=== PATIENT | female | born 1935 | race Caucasian/White ===

== ENCOUNTER 2016-12-19 11:35 | Inpatient (IN) | payer MEDICARE, OTHER ==
[~2016-12-19] VITALS: Ht 167.6 cm; Wt 50.3 kg
[~2016-12-19 11:35] MED LIST: ALPR1TAB7 PO; AMLO5TAB2 PO; CARB-93 PO; CARV25TA PO; ESCI10TA PO; GABA600T2 PO; HYDR-548 PO; HYDR10TA PO; LOSA100T15 PO; OMEP20CA4 PO; ONDA8TAB6 PO
[2016-12-19] MEDS ORDERED: ONDANSETRON 4 MG/2 ML VIAL IV ONE (11:45)
--- NOTE | 2016-12-19 11:45 | NUR ---
pt is in room #1b. dr Azar evaluated the pt.
[2016-12-19 12:04] LABS: BASOPHILS # (AUTO) 0.1 K/uL (0.0-8.0); BASOPHILS % (AUTO) 0.8 % (0.0-2.0); EOSINOPHILS % (AUTO) 0.7 % (0.0-7.0); HEMATOCRIT 40.6 % (37-47); HEMOGLOBIN 12.8 G/DL (12.0-16.0); LYMPHOCYTES # (AUTO) 1.6 K/UL (0.8-4.8); LYMPHOCYTES % (AUTO) 24.6 % (20.5-51.5); MEAN CORPUSCULAR HEMOGLOBIN 22.5 UUG (27.0-31.0); MEAN CORPUSCULAR HGB CONC 32 g/dL (32.0-37.0); MEAN CORPUSCULAR VOLUME 71.5 FL (81.0-99.0); MONOCYTES # (AUTO) 0.6 K/UL (0.1-1.30); MONOCYTES % (AUTO) 8.9 % (0.0-11.0); PLATELET COUNT (AUTO) 249 K/UL (150-450); RED BLOOD CELL COUNT(AUTO) 5.68 MIL/UL (4.2-5.4); WHITE BLOOD COUNT (AUTO) 6.3 K/UL (4.0-11.2)
[2016-12-19 12:11] LABS: CARBON DIOXIDE 27 mmol/L (21-32); CHLORIDE 95 mmol/L (98-107); POTASSIUM 4.2 mmol/L (3.5-5.1)
[2016-12-19 12:12] LABS: CREATININE 0.9 mg/dL (0.6-1.3); GLUCOSE 110 mg/dL (74-106); UREA NITROGEN, BLOOD 21 mg/dL (7-18)
[2016-12-19 12:18] LABS: ALKALINE PHOSPHATASE 95 U/L (50-136); ASPARTATE AMINOTRANSFERASE 13 U/L (15-37); BILIRUBIN,DIRECT 0.1 mg/dL (0.0-0.2); BILIRUBIN,TOTAL 0.4 mg/dL (0.2-1.0); LIPASE 70 U/L (73-393); TOTAL PROTEIN, SERUM 6.7 g/dL (6.4-8.2)
[2016-12-19] MEDS ORDERED: ONDANSETRON 4 MG/2 ML VIAL ONE (12:19)
[2016-12-19 12:26] LABS: ALANINE AMINOTRANSFERASE < 6 U/L (14-59)
[2016-12-19] MEDS ORDERED: IV NORMAL SALINE 500 ML BAG IV ONE (12:30)
--- NOTE | 2016-12-19 12:52 | NUR ---
report was given to rn clinical research. pt was transfered to telemetry room #230.
[2016-12-19 13:00] VITALS: BP 159/91
[2016-12-19 15:42] VITALS: BP 133/79
[2016-12-19 16:23] VITALS: BP_SYST 114; BP_SYST 146; BP_SYST 94; BP_DIAS 60; BP_DIAS 82; BP_DIAS 94
[2016-12-19] MEDS ORDERED: SENNOSIDES 1 TABLET PO PRN (17:00)
[2016-12-19] MEDS: IV NS 1000 ML 1,000 ML IV PRN (17:44)
[2016-12-19] MEDS: LORAZEPAM 0.5 MG TABLET PO PRN (18:00)
[2016-12-19] MEDS: ACETAMINOPHEN ES 500 MG TABLET PO PRN (18:00)
[2016-12-19] MEDS ORDERED: ALPRAZOLAM 0.5 MG TABLET PO PRN (18:15)
[2016-12-19] MEDS: ONDANSETRON HCL 4 MG TABLET PO PRN (18:15)
--- NOTE | 2016-12-19 18:55 | NUR ---
PT IS FEELING NAUSEOUS, MEDICATED APPROPRIATELY. NO CHANGES NOTED. ALL SAFETY NEEDS ARE MET.
[2016-12-19 20:00] VITALS: BP 159/85
[2016-12-19 20:01] VITALS: BP 127/76
[2016-12-19 20:02] VITALS: BP 86/54
[2016-12-19] MEDS: CARBIDOPA/LEVODOPA 25-100MG TABLET PO SCH (20:58)
[2016-12-19] MEDS: LOSARTAN POTASSIUM 50 MG TABLET PO SCH (20:58)
--- NOTE | 2016-12-19 21:00 | NUR ---
PT'S A/A/O X 3-4,C/O NAUSEA AT THIS TIME,ASSISTED FOR ORAL CARE TO PT.MAINTAINED IVF ORDER.PERFORMED ORTHOSTATIC BP ORDER;EDUCATED TO PT,SHE AGREED AND COOPERATIVE W/ASSISTANCE.FALL PREVENTION TO PT.TELEMETRY'S SR 76/MIN.CONTINUED MONITORING TO PT.
[2016-12-19 23:38] LABS: *BILIRUBIN,URIN NEGATIVE (NEGATIVE); *BLOOD, URINE NEGATIVE (NEGATIVE); *CLARITY,URINE CLEAR (CLEAR); *COLOR,URINE YELLOW (YELLOW); *KETONES,URINE NEGATIVE (NEGATIVE); *PROTEIN,URINE NEGATIVE (NEGATIVE); LEUKOCYTE ESTERASE ,URINE TRACE (NEGATIVE); NITRITE, URINE NEGATIVE (NEGATIVE); UGLUCOSE NEGATIVE (NEGATIVE)
[2016-12-20] VITALS (7 sets, daily range): BP systolic 99–152; BP diastolic 61–85
[2016-12-20 00:01] LABS: BACTERIA,URINE FEW /HPF (NONE SEEN); RBC,URINE 0-3 /HPF (0-3); SQUAMOUS EPITHELIAL CELL,UR FEW /HPF (NONE SEEN); WBC,URINE 0-3 /HPF (0-3)
--- NOTE | 2016-12-20 01:45 | NUR ---
PT'S SLEEPING WELL ON BED;UNLABORED BREATHING NOTED.ON IVF ORDER.KEPT CALL-LIGHT WITHIN REACH.ENDORSED TO MARIA ANTONIA/TYPE COPY EXAMINER TO CONTINUE CARE.
--- NOTE | 2016-12-20 03:45 | NUR ---
nursing rounds made ,pt resting quietly in bed, no complaints of discomforts presented,needs attended to.on tele sinus 82,assisted to br,voidedfreely well.i8v fluids infusing well w/ no problem.
[2016-12-20] MEDS: LORAZEPAM 0.5 MG TABLET PO PRN (04:34)
--- NOTE | 2016-12-20 04:34 | NUR ---
PT WAS MEDICATED W/ ATIVAN FOR ANXIETY.REPOSITIONED IN BED,CALL LITE W/I REACH, KEPT WARM AND COMFORTABLE.
--- NOTE | 2016-12-20 05:33 | NUR ---
SLEPT INTERMITTENTLY, NO VOICED COMPLAINTS.SKIN WARM AND DRY.
[2016-12-20] MEDS: ONDANSETRON HCL 4 MG TABLET PO PRN (06:06)
[2016-12-20] MEDS: GABAPENTIN 300 MG CAPSULE PO SCH ×3 (08:11→16:58)
[2016-12-20] MEDS: CARBIDOPA/LEVODOPA 25-100MG TABLET PO SCH ×4 (08:11→21:08)
[2016-12-20] MEDS: HYDROCORTISONE 10 MG TABLET PO SCH ×2 (08:11→16:58)
[2016-12-20] MEDS: LOSARTAN POTASSIUM 50 MG TABLET PO SCH ×2 (08:12→21:08)
[2016-12-20 09:32] LABS: BASOPHILS % (AUTO) 0.6 % (0.0-2.0); EOSINOPHILS # (AUTO) 0.1 K/uL (0.0-0.7); EOSINOPHILS % (AUTO) 1.1 % (0.0-7.0); HEMOGLOBIN 11.8 G/DL (12.0-16.0); LYMPHOCYTES # (AUTO) 1.6 K/UL (0.8-4.8); LYMPHOCYTES % (AUTO) 34.8 % (20.5-51.5); MEAN CORPUSCULAR HEMOGLOBIN 23.1 UUG (27.0-31.0); MEAN CORPUSCULAR HGB CONC 33 g/dL (32.0-37.0); MONOCYTES # (AUTO) 0.4 K/UL (0.1-1.30); MONOCYTES % (AUTO) 8.4 % (0.0-11.0); NEUTROPHILS # (AUTO) 2.6 K/UL (1.8-8.9); NEUTROPHILS % (AUTO) 55.1 % (38.5-71.5); PLATELET COUNT (AUTO) 230 K/UL (150-450)
[2016-12-20 09:41] LABS: HEMATOCRIT 36.2 % (37-47); WHITE BLOOD COUNT (AUTO) 4.7 K/UL (4.0-11.2)
[2016-12-20 10:03] LABS: THYROID STIMULATING HORMONE 0.482 mIU/mL (0.358-3.740)
[2016-12-20 10:10] LABS: LYMPHOCYTES % (MANUAL) 32 % (20-40); MONOCYTES % (MANUAL) 7 % (2-10); NEUTROPHILS % (MANUAL) 61 % (42-75)
[2016-12-20 10:15] LABS: ALANINE AMINOTRANSFERASE 9 U/L (14-59); ALKALINE PHOSPHATASE 90 U/L (50-136); ASPARTATE AMINOTRANSFERASE 12 U/L (15-37); BILIRUBIN,TOTAL 0.3 mg/dL (0.2-1.0); CARBON DIOXIDE 22 mmol/L (21-32); CHLORIDE 102 mmol/L (98-107); GLUCOSE 135 mg/dL (74-106); POTASSIUM 4.2 mmol/L (3.5-5.1); TOTAL PROTEIN, SERUM 6.3 g/dL (6.4-8.2); UREA NITROGEN, BLOOD 16 mg/dL (7-18)
--- NOTE | 2016-12-20 11:04 | NUR ---
Per dr. red change ativan 0.5mg TID PRN and zofran q6h PRN 8mg to IV route. order noted, carried out
[2016-12-20] MEDS: ONDANSETRON 4 MG/2 ML VIAL IV PRN ×2 (12:19→19:50)
[2016-12-20] MEDS: LORAZEPAM 2 MG/1 ML VIAL IV PRN ×2 (12:28→19:50)
[2016-12-20] MEDS: DICYCLOMINE HCL 10 MG CAPSULE PO SCH ×2 (15:11→17:01)
--- NOTE | 2016-12-20 19:30 | NUR ---
Bedside reporting with NIKOLAS Mckeon. Received patient awake, requesting all her meds right away especially her Ativan and Zofran. Very inpatient, anxious, needy and demanding. Safety measures and fall precaution maintained. Continue care as planned.
--- NOTE | 2016-12-20 19:34 | NUR ---
PT IS LAYING IN BED COMFORTABLY. NO PAIN NOTED. NO S/S OF RESPIRATORY DISTRESS NOTED. IV INTACT/PATENT. ALL SAFETY NEEDS ARE MET.
[2016-12-20] MEDS: IV NS 1000 ML 1,000 ML IV PRN (19:47)
--- NOTE | 2016-12-20 20:10 | NUR ---
Assisted to the BR. Voided well no problem.
[2016-12-20] MEDS: ACETAMINOPHEN ES 500 MG TABLET PO PRN (21:28)
[2016-12-20] MEDS: ZOLPIDEM 5 MG TABLET PO PRN (21:28)
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
--- NOTE | 2016-12-20 23:05 | NUR ---
Sleeping at this time.
[2016-12-21] VITALS (7 sets, daily range): BP systolic 96–171; BP diastolic 54–106
--- NOTE | 2016-12-21 04:05 | NUR ---
Awake, sitting at the edge of bed, confused, calling names, wants someone to stay with her inside the room.
[2016-12-21] MEDS: ACETAMINOPHEN ES 500 MG TABLET PO PRN (04:17)
--- NOTE | 2016-12-21 04:17 | NUR ---
Complaint of headache, tylenol given as needed and ordered. Will monitor.
[2016-12-21] MEDS: LORAZEPAM 2 MG/1 ML VIAL IV PRN ×3 (05:05→23:46)
[2016-12-21] MEDS: LOSARTAN POTASSIUM 50 MG TABLET PO SCH ×2 (05:05→22:06)
--- NOTE | 2016-12-21 05:13 | NUR ---
BP 171/106. Cozaar given ahead of schedule. Has no PRN medication ordered. Charge nurse aware.
[2016-12-21] MEDS: DICYCLOMINE HCL 10 MG CAPSULE PO SCH ×5 (06:02→23:45)
--- NOTE | 2016-12-21 06:40 | NUR ---
Patient very needy, demanding, screamer almost the whole night. Attended all needs but never been pleased. Always getting out of bed. Safety measures and fall precaution maintained. Seen by GI MD today. Continue current plan of care.
[2016-12-21 06:48] LABS: BASOPHILS % (AUTO) 0.2 % (0.0-2.0); EOSINOPHILS % (AUTO) 0.7 % (0.0-7.0); HEMATOCRIT 36.5 % (37-47); HEMOGLOBIN 11.5 G/DL (12.0-16.0); LYMPHOCYTES # (AUTO) 1.4 K/UL (0.8-4.8); LYMPHOCYTES % (AUTO) 30.8 % (20.5-51.5); MEAN CORPUSCULAR HEMOGLOBIN 22.5 UUG (27.0-31.0); MEAN CORPUSCULAR HGB CONC 32 g/dL (32.0-37.0); MEAN CORPUSCULAR VOLUME 71.5 FL (81.0-99.0); MONOCYTES # (AUTO) 0.5 K/UL (0.1-1.30); MONOCYTES % (AUTO) 10.7 % (0.0-11.0); NEUTROPHILS # (AUTO) 2.7 K/UL (1.8-8.9); NEUTROPHILS % (AUTO) 57.6 % (38.5-71.5); PLATELET COUNT (AUTO) 207 K/UL (150-450); WHITE BLOOD COUNT (AUTO) 4.6 K/UL (4.0-11.2)
[2016-12-21 07:16] LABS: ALANINE AMINOTRANSFERASE 8 U/L (14-59); ALKALINE PHOSPHATASE 78 U/L (50-136); ASPARTATE AMINOTRANSFERASE 14 U/L (15-37); BILIRUBIN,TOTAL 0.5 mg/dL (0.2-1.0); CARBON DIOXIDE 24 mmol/L (21-32); CHLORIDE 101 mmol/L (98-107); CREATININE 0.7 mg/dL (0.6-1.3); GLUCOSE 92 mg/dL (74-106); MAGNESIUM 1.7 mg/dL (1.8-2.4); PHOSPHOROUS 2.6 mg/dL (2.5-4.9); UREA NITROGEN, BLOOD 15 mg/dL (7-18)
[2016-12-21] MEDS: ONDANSETRON 4 MG/2 ML VIAL IV PRN (08:29)
[2016-12-21] MEDS: CARBIDOPA/LEVODOPA 25-100MG TABLET PO SCH ×4 (08:30→22:05)
[2016-12-21] MEDS: GABAPENTIN 300 MG CAPSULE PO SCH ×3 (08:30→17:12)
[2016-12-21 08:44] LABS: EOSINOPHILS % (MANUAL) 1 % (0-8); LYMPHOCYTES % (MANUAL) 32 % (20-40); MONOCYTES % (MANUAL) 10 % (2-10); NEUTROPHILS % (MANUAL) 57 % (42-75)
[2016-12-21] MEDS: HYDROCORTISONE 10 MG TABLET PO SCH ×2 (08:46→17:13)
[2016-12-21] MEDS: CARVEDILOL 12.5 MG TABLET PO SCH ×2 (10:15→22:06)
[2016-12-21] MEDS: MAGNESIUM SULFATE/D5W 100 ML IV SCH ×2 (11:00→12:18)
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
[2016-12-21 14:39] LABS: IRON, SERUM 52 ug/dL (50-175)
[2016-12-21 14:54] LABS: FERRITIN 83 ng/mL (8-252)
[2016-12-21 17:08] LABS: *ANTI-SCLERODERMA-70 AB <0.2 AI (0.0-0.9); *SJOGREN'S ANTI-SS-A <0.2 AI (0.0-0.9); *SJOGREN'S ANTI-SS-B <0.2 AI (0.0-0.9); *SMITH ANTIBODIES <0.2 AI (0.0-0.9); ANTI-DNA(DS) AB, QN 1 IU/mL (0-9)
--- NOTE | 2016-12-21 19:25 | NUR ---
NO CHANGES NOTED. PT IS LAYING IN BED COMFORTABLY. PT REPORTS TO BE DIZZY, ADVISED THE PT TO STAY IN HER BED AND CALL IN CASE THE PT WANTS TO GO TO THE BATHROOM. NO S/S OF RESPIRATORY DISTRESS NOTED. NO PAIN NOTED. ALL SAFETY NEEDS ARE MET.
[2016-12-22] VITALS (11 sets, daily range): BP systolic 91–173; BP diastolic 57–99
--- NOTE | 2016-12-22 00:37 | NUR ---
RN NOTES: PATIENT IS COMPLAINING OF GENERALIZED PAIN . CALLED MD HANDY, AND SHE PRESCRIBED NORCO 5-325 MG PRN Q 6HRS.WILL CARRY THE ORDER AND CONTINUE TO MONITOR.
[2016-12-22] MEDS: HYDROCODONE/APAP 5-325MG TABLET PO PRN ×3 (00:45→17:24)
[2016-12-22] MEDS ORDERED: HYDROCODONE/APAP 5-325MG TABLET ONE (00:53)
[2016-12-22] MEDS: DICYCLOMINE HCL 10 MG CAPSULE PO SCH ×4 (05:53→18:15)
[2016-12-22 07:08] LABS: CARBON DIOXIDE 25 mmol/L (21-32); CHLORIDE 99 mmol/L (98-107); CREATININE 0.7 mg/dL (0.6-1.3); GLUCOSE 91 mg/dL (74-106); MAGNESIUM 1.9 mg/dL (1.8-2.4); PHOSPHOROUS 2.7 mg/dL (2.5-4.9); POTASSIUM 4.1 mmol/L (3.5-5.1); UREA NITROGEN, BLOOD 13 mg/dL (7-18)
[2016-12-22 07:23] LABS: BASOPHILS % (AUTO) 0.3 % (0.0-2.0); EOSINOPHILS % (AUTO) 0.8 % (0.0-7.0); HEMATOCRIT 35.9 % (37-47); HEMOGLOBIN 11.7 G/DL (12.0-16.0); LYMPHOCYTES # (AUTO) 1.7 K/UL (0.8-4.8); LYMPHOCYTES % (AUTO) 37.6 % (20.5-51.5); MEAN CORPUSCULAR HEMOGLOBIN 23.1 UUG (27.0-31.0); MEAN CORPUSCULAR HGB CONC 33 g/dL (32.0-37.0); MONOCYTES # (AUTO) 0.4 K/UL (0.1-1.30); MONOCYTES % (AUTO) 8.1 % (0.0-11.0); NEUTROPHILS # (AUTO) 2.3 K/UL (1.8-8.9); NEUTROPHILS % (AUTO) 53.2 % (38.5-71.5); PLATELET COUNT (AUTO) 218 K/UL (150-450); RED BLOOD CELL COUNT(AUTO) 5.05 MIL/UL (4.2-5.4); WHITE BLOOD COUNT (AUTO) 4.4 K/UL (4.0-11.2)
--- NOTE | 2016-12-22 08:00 | NUR ---
AWAKE ORTX2 SOME FORGETFUL BUT ABLE TO FOLLOW SIMPLE DIRECTION NO PAIN OR SOB RESTING WITH CALL LIGHT IN REACH AND BED ALARM ON
[2016-12-22] MEDS: GABAPENTIN 300 MG CAPSULE PO SCH ×3 (08:30→17:23)
[2016-12-22] MEDS: CARBIDOPA/LEVODOPA 25-100MG TABLET PO SCH ×4 (08:30→22:10)
[2016-12-22] MEDS: HYDROCORTISONE 10 MG TABLET PO SCH ×2 (08:30→17:27)
[2016-12-22] MEDS: CARVEDILOL 12.5 MG TABLET PO SCH ×2 (08:33→22:08)
[2016-12-22 08:43] LABS: EOSINOPHILS % (MANUAL) 1 % (0-8); LYMPHOCYTES % (MANUAL) 38 % (20-40); MONOCYTES % (MANUAL) 9 % (2-10); NEUTROPHILS % (MANUAL) 52 % (42-75)
[2016-12-22] MEDS: LOSARTAN POTASSIUM 50 MG TABLET PO SCH ×2 (09:24→22:09)
--- NOTE | 2016-12-22 10:00 | NUR ---
ORTHO STATIC BP CHECKING BUT UNABLE TO DO ON STANDING BECAUSE OF PATIENT VERY WEAK AND C/O OF DIZZINESS CABLE TESTER MD INFORM THIS AM
[2016-12-22] MEDS: VALSARTAN 80 MG TABLET PO SCH ×2 (10:30→10:57)
[2016-12-22] MEDS: ONDANSETRON INJ 8 MG in IV NORMAL SALINE 50 ML IV PRN ×2 (10:56→17:08)
--- NOTE | 2016-12-22 11:30 | NUR ---
DR BURNETTE VISIT PATIENT CONDITION INFORM NEW ORDER IN CHART
[2016-12-22 13:16] LABS: URIC ACID 2.9 mg/dL (2.6-6.0)
[2016-12-22 13:55] LABS: THYROID STIMULATING HORMONE 0.419 mIU/mL (0.358-3.740)
[2016-12-22] MEDS: LORAZEPAM 2 MG/1 ML VIAL IV PRN (16:21)
--- NOTE | 2016-12-22 18:00 | NUR ---
HEMODYNAMIC STATUS STABLE SAFETY MEASURE PROVIDED BED ALARM ON AND CALL JHAVERI IN REACH NO RESPIRATORY DISTRESS
[2016-12-22] MEDS: ZOLPIDEM 5 MG TABLET PO PRN (22:07)
--- NOTE | 2016-12-23 00:10 | NUR ---
MID SHIFT REPORT TAKEN FROM RN CARDIAC CATH. RECEIVED PT RESTING IN BED, IN NO ACUTE DISTRESS. IVF RUNNING, NO INFILTRATION NOTED. SAFETY MEASURES IN PLACE, CALL LIGHT WITHIN REACH, BED ALARM ON. WILL CONTINUE PLAN OF CARE AND MONITOR.
[2016-12-23] MEDS: DICYCLOMINE HCL 10 MG CAPSULE PO SCH ×4 (01:08→16:21)
[2016-12-23 04:33] VITALS: BP 121/90
--- NOTE | 2016-12-23 05:46 | NUR ---
PATIENT SLEPT INTERMITTENTLY, IN NO ACUTE DISTRESS, NO SOB. CALL LIGHT WITHIN REACH, BED ALARM ON. WILL CONTINUE PLAN OF CARE AND MONITOR.
[2016-12-23] MEDS: ONDANSETRON INJ 8 MG in IV NORMAL SALINE 50 ML IV PRN ×2 (08:19→13:25)
[2016-12-23] MEDS: GABAPENTIN 300 MG CAPSULE PO SCH ×3 (08:21→16:21)
[2016-12-23] MEDS: CARBIDOPA/LEVODOPA 25-100MG TABLET PO SCH ×3 (08:21→16:21)
[2016-12-23] MEDS: VALSARTAN 80 MG TABLET PO SCH (08:22)
[2016-12-23] MEDS: LOSARTAN POTASSIUM 50 MG TABLET PO SCH (08:22)
[2016-12-23] MEDS: CARVEDILOL 12.5 MG TABLET PO SCH (08:22)
--- NOTE | 2016-12-23 08:30 | NUR ---
AWAKE COOERATE WELL EAT BREAKFAST SMALL AMT PO FLD REZA WELL C/O OF DIZZINESS PAIN UNDER CONTROL SAFETY MEASURE PROVIDED CALL JHAVERI IN REACH AND BED ALARM ON
[2016-12-23 08:44] LABS: ALANINE AMINOTRANSFERASE 8 U/L (14-59); ALKALINE PHOSPHATASE 73 U/L (50-136); ASPARTATE AMINOTRANSFERASE 14 U/L (15-37); BILIRUBIN,TOTAL 0.3 mg/dL (0.2-1.0); CARBON DIOXIDE 26 mmol/L (21-32); CHLORIDE 99 mmol/L (98-107); CREATININE 0.8 mg/dL (0.6-1.3); GLUCOSE 87 mg/dL (74-106); MAGNESIUM 1.9 mg/dL (1.8-2.4); PHOSPHOROUS 3.5 mg/dL (2.5-4.9); POTASSIUM 4.7 mmol/L (3.5-5.1); TOTAL PROTEIN, SERUM 6.1 g/dL (6.4-8.2); UREA NITROGEN, BLOOD 11 mg/dL (7-18)
[2016-12-23] MEDS: HYDROCORTISONE 10 MG TABLET PO SCH ×2 (09:34→16:21)
[2016-12-23 09:41] LABS: BASOPHILS % (AUTO) 0.3 % (0.0-2.0); EOSINOPHILS % (AUTO) 0.7 % (0.0-7.0); HEMATOCRIT 37.9 % (37-47); HEMOGLOBIN 11.9 G/DL (12.0-16.0); LYMPHOCYTES # (AUTO) 1.5 K/UL (0.8-4.8); LYMPHOCYTES % (AUTO) 24.6 % (20.5-51.5); MEAN CORPUSCULAR HEMOGLOBIN 22.4 UUG (27.0-31.0); MEAN CORPUSCULAR HGB CONC 32 g/dL (32.0-37.0); MEAN CORPUSCULAR VOLUME 71.2 FL (81.0-99.0); MONOCYTES # (AUTO) 0.5 K/UL (0.1-1.30); MONOCYTES % (AUTO) 9.1 % (0.0-11.0); NEUTROPHILS # (AUTO) 3.9 K/UL (1.8-8.9); NEUTROPHILS % (AUTO) 65.3 % (38.5-71.5); PLATELET COUNT (AUTO) 186 K/UL (150-450); RED BLOOD CELL COUNT(AUTO) 5.32 MIL/UL (4.2-5.4); WHITE BLOOD COUNT (AUTO) 5.9 K/UL (4.0-11.2)
--- NOTE | 2016-12-23 10:00 | NUR ---
DR LAM SEE PATIENT AND LAB RESULT AND ORDER IN CHART PATIENT CONDITION INFORM OF C/O BURNNING WHEN URINATE AND STILL VERY WEAK UNABLE TO AMBULATE BECAUSE OF DIZZINESS
[2016-12-23] MEDS ORDERED: DIAZEPAM 5 MG TABLET PO PRN (10:15)
[2016-12-23] MEDS ORDERED: PANT40TA2 PO (10:31)
[2016-12-23] MEDS ORDERED: ACET-2605 PO (10:31)
[2016-12-23] MEDS ORDERED: DICY10CA21 PO (10:31)
[2016-12-23] MEDS ORDERED: SENN-167 PO (10:31)
[2016-12-23] MEDS ORDERED: DIAZ5TAB4 PO (10:31)
[2016-12-23] MEDS ORDERED: FLUDROCORTISONE ACETATE 0.1 MG TABLET PO SCH (10:45)
[2016-12-23 12:46] LABS: *BILIRUBIN,URIN NEGATIVE (NEGATIVE); *BLOOD, URINE NEGATIVE (NEGATIVE); *CLARITY,URINE CLEAR (CLEAR); *COLOR,URINE LIGHT YELLOW (YELLOW); *KETONES,URINE NEGATIVE (NEGATIVE); *PROTEIN,URINE NEGATIVE (NEGATIVE); *UROBILINOGEN,URINE 0.2 E.U./dl (NORMAL); LEUKOCYTE ESTERASE ,URINE NEGATIVE (NEGATIVE); NITRITE, URINE NEGATIVE (NEGATIVE); UGLUCOSE NEGATIVE (NEGATIVE)
--- NOTE | 2016-12-23 13:00 | NUR ---
EAT LUNCH MOD AMT AND C/O OF NAUSEA AND VOMITTING INDIGESTIVE FOOD 50 ML ZOFRAN IVPB GIVEN ORDER
[2016-12-23 13:19] VITALS: BP 129/74
[2016-12-23 13:43] LABS: BACTERIA,URINE FEW /HPF (NONE SEEN); RBC,URINE 0-3 /HPF (0-3); SQUAMOUS EPITHELIAL CELL,UR MODERATE /HPF (NONE SEEN); WBC,URINE 0-3 /HPF (0-3)
--- NOTE | 2016-12-23 14:30 | NUR ---
NAUSEA SUBSIDE FAMILY SON MR HEIN WAS INFORM OF PATIENT DISCHARGE TO REHAB UNIT FIRST FLOOR TODAY ,HE WAS AWARE ABOUT IT
--- NOTE | 2016-12-23 15:00 | NUR ---
REPORT GIVE TO REHAB UNIT NURSE VIA TEL ,PATIENT WAS VERY ANXIETY VALIUM PRN AND TYLENOL PRN FOR PAIN GIVEN
[2016-12-23] MEDS: ACETAMINOPHEN ES 500 MG TABLET PO PRN (15:06)
--- NOTE | 2016-12-23 16:00 | NUR ---
D/C INSTRUCTION AND EDUCATION GIVEN TO PATIENT VERBALIZES UNDERSTAND AND SIGNS PART OF D/C SHEET REFUSED TO SIGNNS ONE OF THREE
[2016-12-23 16:47] VITALS: BP 146/76
--- NOTE | 2016-12-23 17:00 | NUR ---
TAKE DOWN TO REHAB UNIT VIA W/C CONDITION STABLE NO C/O OF DIZZINESS OR N/V OR PAIN AND BELONGING GO WITH PATIENT
[2016-12-24] MEDS ORDERED: FLUD0.1T PO (11:29)
== END 2016-12-23 17:00 | DRG 644 ==
LOC: ER 11:35 → TELE 13:19 → MED 12-20 12:59
PROVIDERS: ADMIT Internal Medicine; ATTEND Internal Medicine
DX: E22.2 Syndrome of inappropriate secretion of antidiuretic hormone (principal); F11.23 Opioid dependence with withdrawal; E27.40 Unspecified adrenocortical insufficiency; E44.1 Mild protein-calorie malnutrition; G90.8 Other disorders of autonomic nervous system; E86.0 Dehydration; G20 Parkinson's disease; K27.9 Peptic ulcer, site unspecified, unspecified as acute or chronic, without hemorrhage or perforation; I10 Essential (primary) hypertension; E83.42 Hypomagnesemia; K21.9 Gastro-esophageal reflux disease without esophagitis; J40 Bronchitis, not specified as acute or chronic; T40.2X5A Adverse effect of other opioids, initial encounter; Y92.009 Unspecified place in unspecified non-institutional (private) residence as the place of occurrence of the external cause; G62.9 Polyneuropathy, unspecified; I71.9 Aortic aneurysm of unspecified site, without rupture
CPT/HCPCS: 36415; 70030-TC; 71010; 76700; 82533; 83550; 83690; 83735; 84100; 84300; 84443; 84480; 84550; 85025; 85651; 85730; 86038; 87086; 93005; 93307; 97110; 97161; 97530; A4663; J2060; J2405; J3475; J3490; J7030; J7040; Q0162

== ENCOUNTER 2016-12-23 14:14 | Inpatient (IN) | payer MEDICARE, OTHER ==
[~2016-12-23] VITALS: Ht 152.4 cm; Wt 50.3 kg
[~2016-12-23 14:14] MED LIST changes: +ACET-2605 PO; -AMLO5TAB2 PO; -CARV25TA PO; +DIAZ5TAB4 PO; +DICY10CA21 PO; -ESCI10TA PO; -HYDR-548 PO; -OMEP20CA4 PO; +PANT40TA2 PO; +SENN-167 PO
[2016-12-23 14:30] VITALS: BP 139/81
[2016-12-23] MEDS ORDERED: Z GUARD REMEDY PASTE 57 GM TUBE TOP PRN (17:45)
--- NOTE | 2016-12-23 19:30 | NUR ---
Received patient awake on her bed, no s/s of distress. Requested for snacks. Call light within reach. Will continue to monitor.
[2016-12-23] MEDS: HYDROCODONE/APAP 5-325MG TABLET PO PRN (20:35)
[2016-12-23 22:09] VITALS: BP 138/85
[2016-12-24] MEDS ORDERED: ACETAMINOPHEN 325 MG TABLET PO PRN
[2016-12-24] MEDS: DIAZEPAM 5 MG TABLET PO PRN ×2 (00:07→16:04)
[2016-12-24] MEDS ORDERED: DIAZEPAM 5 MG TABLET ONE (00:13)
[2016-12-24] MEDS ORDERED: ACETAMINOPHEN ES 500 MG TABLET ONE (00:13)
[2016-12-24] MEDS ORDERED: HYDROCODONE/APAP 5-325MG TABLET PO STA (01:37)
--- NOTE | 2016-12-24 01:40 | NUR ---
Patient verbalizes pain despite being given [place] 5-325 at 2030 and Tylenol 500mg at 0000 as ordered. Comfort measures likewise provided. Diazepam given as ordered to help with anxiety. Dr. Johnson made aware of patient's complaints and ordered [place] 5-325 once STAT. Carried out at 0130. Will continue to monitor.
--- NOTE | 2016-12-24 07:09 | NUR ---
Patient resting on her bed. Respirations even and unlabored. Complains of generalized pain, verbalized little relief after interventions. Tried to alleviate anxiety by talking, comforting and close monitoring. Pain complaints and VS attempted to be communicated to MD maintenance and operations supervisor several times this morning, still awaiting call back. Frequent checks done. Call light kept within reach. Needs attended. Due meds given. Kept comfortable. Endorsed accordingly.
[2016-12-24 07:15] LABS: PHOSPHOROUS 3.6 mg/dL (2.5-4.9)
[2016-12-24 07:57] LABS: BASOPHILS # (AUTO) 0.1 K/uL (0.0-8.0); EOSINOPHILS % (AUTO) 0.8 % (0.0-7.0); HEMATOCRIT 37.9 % (37-47); HEMOGLOBIN 12.5 G/DL (12.0-16.0); LYMPHOCYTES # (AUTO) 1.9 K/UL (0.8-4.8); LYMPHOCYTES % (AUTO) 34.4 % (20.5-51.5); MEAN CORPUSCULAR HEMOGLOBIN 23.5 UUG (27.0-31.0); MEAN CORPUSCULAR HGB CONC 33 g/dL (32.0-37.0); MEAN CORPUSCULAR VOLUME 71.3 FL (81.0-99.0); MONOCYTES # (AUTO) 0.5 K/UL (0.1-1.30); MONOCYTES % (AUTO) 9.6 % (0.0-11.0); NEUTROPHILS % (AUTO) 54.2 % (38.5-71.5); PLATELET COUNT (AUTO) 224 K/UL (150-450); RED BLOOD CELL COUNT(AUTO) 5.31 MIL/UL (4.2-5.4); WHITE BLOOD COUNT (AUTO) 5.5 K/UL (4.0-11.2)
[2016-12-24 08:00] VITALS: BP 203/108
[2016-12-24 08:35] LABS: CARBON DIOXIDE 27 mmol/L (21-32); CHLORIDE 100 mmol/L (98-107); GLUCOSE 84 mg/dL (74-106); POTASSIUM 3.8 mmol/L (3.5-5.1)
[2016-12-24 08:36] LABS: CREATININE 0.9 mg/dL (0.6-1.3); MAGNESIUM 1.9 mg/dL (1.8-2.4); TRIGLYCERIDES 188 MG/DL (30-150); UREA NITROGEN, BLOOD 11 mg/dL (7-18)
[2016-12-24 08:37] LABS: CHOLESTEROL 137 mg/dL (<200); HDL CHOLESTEROL 65 mg/dL (40-60)
[2016-12-24] MEDS: hydrALAZINE HCL 10 MG TABLET PO PRN (09:14)
[2016-12-24] MEDS: HYDROCODONE/APAP 5-325MG TABLET PO PRN ×2 (09:16→21:29)
[2016-12-24] MEDS: ACETAMINOPHEN ES 500 MG TABLET PO PRN (09:16)
[2016-12-24] MEDS ORDERED: ALPRAZOLAM 0.25 MG TABLET PO PRN (10:15)
[2016-12-24] MEDS ORDERED: DIAZEPAM 5 MG TABLET PO PRN ×2 (10:15→13:00)
[2016-12-24] MEDS ORDERED: FLUD0.1T PO (11:29)
[2016-12-24 11:49] VITALS: BP 122/79
--- NOTE | 2016-12-24 12:15 | NUR ---
Tenter Feeder SW met with patient at [facility] to assess pt needs and provide support. The patient's son Sánchez Farias was sitting at the patient's bedside. The patient is an 81 year old female admitted for Parkinson's disease, Neuropathy, and Chronic neuropathic pain. The patient was laying in her bed during the assessment. She was calm, pleasant, and cooperative during the interview. The patient's mood was somewhat anxious and superficial. The patient stated that she is experiencing some pain and her hands have been shaking since she has not taken her parkinsons medicaiton. Per pt, she lives with her son at [[id number] ]. Spoke with both patient and son who stated that they would like for the patient to return home upon discharge. The patient acknowledged her condition and the need for intervention. The patient stated that she has strong social support from her son. Social History: The patient stated that she is of [place] descent and was born in [place] and raised in [place] by both of her parents. She also lived in [place] for 10 years. She was once for 4 years and in 1979 and then moved to the with her son. The patient has lived in the same apartment for 7-10 years. 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 Her son is her primary caregiver and is her main support. SW engaged in active listening and provided supportive counseling during the interview to address patient's depressive symptoms related to her decline in functioning. SW will continue to address issues of loss related to recent hospitalization. SW will encourage compliance with rehab goals. SW will be available as needed.
[2016-12-24] MEDS: DICYCLOMINE HCL 10 MG CAPSULE PO SCH ×2 (12:30→18:06)
[2016-12-24] MEDS: GABAPENTIN 300 MG CAPSULE PO SCH ×2 (12:30→16:04)
[2016-12-24] MEDS: CARBIDOPA/LEVODOPA 25-100MG TABLET PO SCH ×3 (12:30→21:13)
[2016-12-24] MEDS: LOSARTAN POTASSIUM 50 MG TABLET PO SCH (12:39)
[2016-12-24] MEDS: FLUDROCORTISONE ACETATE 0.1 MG TABLET PO SCH (12:40)
[2016-12-24] MEDS ORDERED: CARBIDOPA/LEVODOPA 25-100MG TABLET PO SCH (13:00)
[2016-12-24] MEDS ORDERED: ACETAMINOPHEN ES 500 MG TABLET PO PRN (13:00)
[2016-12-24] MEDS ORDERED: SENNOSIDES 1 TABLET PO PRN (13:00)
[2016-12-24 14:20] LABS: LYMPHOCYTES % (MANUAL) 41 % (20-40); NEUTROPHILS % (MANUAL) 49 % (42-75)
[2016-12-24 14:21] LABS: MONOCYTES % (MANUAL) 10 % (2-10)
[2016-12-24] MEDS: SENNOSIDES 1 TABLET PO PRN (15:11)
[2016-12-24] MEDS: HYDROCORTISONE 10 MG TABLET PO SCH (16:04)
[2016-12-24] MEDS ORDERED: HYDROCORTISONE 10 MG TABLET PO SCH (17:00)
[2016-12-24] MEDS ORDERED: DICYCLOMINE HCL 10 MG CAPSULE PO SCH (18:00)
--- NOTE | 2016-12-24 19:30 | NUR ---
Received report from NIKOLAS Rutledge. Pt currently asleep, breathing normally, observed a good color.
[2016-12-24] MEDS: ATORVASTATIN 10 MG TABLET PO SCH (21:13)
[2016-12-24] MEDS: ONDANSETRON HCL 4 MG TABLET PO PRN (21:27)
[2016-12-24 21:33] VITALS: BP_SYST 133; BP_SYST 178; BP_DIAS 106; BP_DIAS 78
--- NOTE | 2016-12-24 22:00 | NUR ---
Night meds given, requested for [place] and zofran for bilateral leg pain.VS has been stable. Pleasant AOX3, transfers to bedside commode by herself. Observed tremors to bilateral hands/arms.
--- NOTE | 2016-12-25 | NUR ---
Pt is awake and administered Bentyl (routine meds), requested blanket, made pt comfortable.
[2016-12-25] MEDS: DICYCLOMINE HCL 10 MG CAPSULE PO SCH ×5 (01:27→23:26)
--- NOTE | 2016-12-25 05:00 | NUR ---
Remained asleep, breathing normally, continue monitor.
[2016-12-25] MEDS: PANTOPRAZOLE SODIUM 40 MG TABLET.DR PO SCH (05:48)
[2016-12-25] MEDS: HYDROCODONE/APAP 5-325MG TABLET PO PRN ×2 (06:18→17:25)
[2016-12-25] MEDS: ONDANSETRON HCL 4 MG TABLET PO PRN (06:18)
--- NOTE | 2016-12-25 07:15 | NUR ---
Report to NIKOLAS Rutledge
[2016-12-25 08:00] VITALS: BP 191/114
[2016-12-25] MEDS ORDERED: PANTOPRAZOLE SODIUM 40 MG TABLET.DR PO SCH (09:00)
[2016-12-25] MEDS: LOSARTAN POTASSIUM 50 MG TABLET PO SCH (09:06)
[2016-12-25] MEDS: GABAPENTIN 300 MG CAPSULE PO SCH ×3 (09:06→17:19)
[2016-12-25] MEDS: CARBIDOPA/LEVODOPA 25-100MG TABLET PO SCH ×4 (09:07→20:14)
[2016-12-25] MEDS: FLUDROCORTISONE ACETATE 0.1 MG TABLET PO SCH (09:07)
[2016-12-25] MEDS: HYDROCORTISONE 10 MG TABLET PO SCH ×2 (09:09→17:19)
--- NOTE | 2016-12-25 15:05 | NUR ---
IDT MEETING 12/25/16
[2016-12-25] MEDS: ACETAMINOPHEN ES 500 MG TABLET PO PRN (15:10)
[2016-12-25] MEDS: SENNOSIDES 1 TABLET PO PRN (15:14)
[2016-12-25] MEDS: DIAZEPAM 5 MG TABLET PO PRN (15:38)
--- NOTE | 2016-12-25 19:05 | NUR ---
pt still complains of pain and constipation. pt given valium and senna. pt also given norco for pain. pt still complains of pain .
[2016-12-25 20:06] VITALS: BP 108/70
[2016-12-25] MEDS: ATORVASTATIN 10 MG TABLET PO SCH (20:14)
[2016-12-26] MEDS: HYDROCODONE/APAP 5-325MG TABLET PO PRN ×2 (03:49→11:50)
[2016-12-26] MEDS: DICYCLOMINE HCL 10 MG CAPSULE PO SCH ×3 (06:28→17:52)
[2016-12-26] MEDS: PANTOPRAZOLE SODIUM 40 MG TABLET.DR PO SCH (06:28)
[2016-12-26] MEDS: ONDANSETRON HCL 4 MG TABLET PO PRN ×2 (06:31→13:14)
--- NOTE | 2016-12-26 06:42 | NUR ---
Patient alert and oriented and verbally able to let needs known. Slept well throughout the night, c/o pain once and medication was given with relief. No signs of distress noted, maintained clean and dry, call light within reach. Addendum: 12/26/16 at 0644 by CAM LAN RN Patient c/o feeling some nausea this morning and zofran was administered, will continue to monitor. No emesis present
[2016-12-26] MEDS: hydrALAZINE HCL 10 MG TABLET PO PRN (06:53)
--- NOTE | 2016-12-26 06:55 | NUR ---
Patient stated she felt that her b/p was high. B/p was checked with a reading of 190/110. Apresoline PRN was given, will recheck the b/p again in about 30 mins
--- NOTE | 2016-12-26 07:00 | NUR ---
Received pt in bed, a/o x4, pt c/o of stomach pain and constipation states she has not moved bowels x4 days, active bowel sounds active all 4 quadrants. Call light within reach. Bed low/locked position.
[2016-12-26 07:56] VITALS: BP 201/117
--- NOTE | 2016-12-26 08:30 | NUR ---
B/P rechecked reading 125/76 HR 73.
[2016-12-26] MEDS: CARBIDOPA/LEVODOPA 25-100MG TABLET PO SCH ×4 (08:47→20:43)
[2016-12-26] MEDS: LOSARTAN POTASSIUM 50 MG TABLET PO SCH (08:47)
[2016-12-26] MEDS: DULOXETINE 30 MG CAPSULE.DR PO SCH (08:48)
[2016-12-26] MEDS: SENNOSIDES 1 TABLET PO PRN (08:48)
[2016-12-26] MEDS: FLUDROCORTISONE ACETATE 0.1 MG TABLET PO SCH (08:48)
[2016-12-26] MEDS: GABAPENTIN 300 MG CAPSULE PO SCH ×3 (08:48→16:30)
[2016-12-26] MEDS: HYDROCORTISONE 10 MG TABLET PO SCH ×2 (08:59→16:31)
[2016-12-26 09:46] VITALS: BP 138/84
--- NOTE | 2016-12-26 13:14 | NUR ---
pt c/o of nausea, noted with x1 episode of vomiting. zofran 8mg po given as requested. will con't to monitor.
[2016-12-26] MEDS: MIRALAX 17 GM POWD.PACK PO PRN (17:55)
--- NOTE | 2016-12-26 18:16 | NUR ---
END of shift pt in bed, a/o x3, no distress noted. Pt was seen by dr. Sandoval and he spoke to the pt regarding the plan of care, he spoke to pt on d/c of norco medication, pt in agreement. Miralax Po was given for c/o of constipation. will endorse to oncoming nurse to monitor effectiveness.
[2016-12-26 20:00] VITALS: BP 109/67
--- NOTE | 2016-12-26 20:00 | NUR ---
Patient in room A/ox4 with no distress noted. Denies SOB,N/V. asking for ativan for anxiety. provided comfort and safety measures
[2016-12-26] MEDS: LORAZEPAM 1 MG TABLET PO PRN (20:43)
[2016-12-26] MEDS: ACETAMINOPHEN ES 500 MG TABLET PO PRN (20:43)
[2016-12-26] MEDS: ATORVASTATIN 10 MG TABLET PO SCH (20:43)
--- NOTE | 2016-12-26 23:00 | NUR ---
Pateint sleeping with no distress noted
[2016-12-27] MEDS: PANTOPRAZOLE SODIUM 40 MG TABLET.DR PO SCH (05:39)
[2016-12-27] MEDS: DICYCLOMINE HCL 10 MG CAPSULE PO SCH ×5 (05:39→23:16)
[2016-12-27] MEDS: ACETAMINOPHEN ES 500 MG TABLET PO PRN ×3 (05:39→23:16)
[2016-12-27 06:20] LABS: BASOPHILS % (AUTO) 0.2 % (0.0-2.0); EOSINOPHILS % (AUTO) 0.8 % (0.0-7.0); HEMATOCRIT 37.3 % (37-47); HEMOGLOBIN 11.9 G/DL (12.0-16.0); LYMPHOCYTES # (AUTO) 1.9 K/UL (0.8-4.8); LYMPHOCYTES % (AUTO) 31.9 % (20.5-51.5); MEAN CORPUSCULAR HGB CONC 32 g/dL (32.0-37.0); MEAN CORPUSCULAR VOLUME 71.9 FL (81.0-99.0); MONOCYTES # (AUTO) 0.4 K/UL (0.1-1.30); MONOCYTES % (AUTO) 7.6 % (0.0-11.0); NEUTROPHILS # (AUTO) 3.6 K/UL (1.8-8.9); NEUTROPHILS % (AUTO) 59.5 % (38.5-71.5); PLATELET COUNT (AUTO) 217 K/UL (150-450); RED BLOOD CELL COUNT(AUTO) 5.18 MIL/UL (4.2-5.4); WHITE BLOOD COUNT (AUTO) 5.9 K/UL (4.0-11.2)
[2016-12-27 06:44] LABS: ALANINE AMINOTRANSFERASE 14 U/L (14-59); ALKALINE PHOSPHATASE 71 U/L (50-136); ASPARTATE AMINOTRANSFERASE 20 U/L (15-37); BILIRUBIN,TOTAL 0.3 mg/dL (0.2-1.0); CARBON DIOXIDE 29 mmol/L (21-32); CHLORIDE 95 mmol/L (98-107); CREATININE 0.8 mg/dL (0.6-1.3); GLUCOSE 84 mg/dL (74-106); PHOSPHOROUS 4.1 mg/dL (2.5-4.9); POTASSIUM 4.6 mmol/L (3.5-5.1); TOTAL PROTEIN, SERUM 6.1 g/dL (6.4-8.2); UREA NITROGEN, BLOOD 17 mg/dL (7-18)
[2016-12-27] MEDS: hydrALAZINE HCL 10 MG TABLET PO PRN (07:37)
[2016-12-27 08:00] VITALS: BP 172/89
--- NOTE | 2016-12-27 08:00 | NUR ---
Received patient awake, sitting up on the bed, alert, verbally responsive, not in any form of acute distress. She denies any pain or discomfort at this time. Environmental safety checks done. Assisted to her needs. Call light placed within reach.
[2016-12-27] MEDS: HYDROCORTISONE 10 MG TABLET PO SCH ×2 (08:32→17:04)
[2016-12-27] MEDS: CARBIDOPA/LEVODOPA 25-100MG TABLET PO SCH ×4 (08:34→20:36)
[2016-12-27] MEDS: GABAPENTIN 300 MG CAPSULE PO SCH ×3 (08:35→17:05)
[2016-12-27] MEDS: DULOXETINE 30 MG CAPSULE.DR PO SCH (08:35)
[2016-12-27] MEDS: FLUDROCORTISONE ACETATE 0.1 MG TABLET PO SCH (08:36)
[2016-12-27] MEDS: MIRALAX 17 GM POWD.PACK PO PRN (09:07)
[2016-12-27] MEDS: LOSARTAN POTASSIUM 50 MG TABLET PO SCH ×2 (09:56→20:35)
[2016-12-27] MEDS: ONDANSETRON HCL 4 MG TABLET PO PRN (10:25)
[2016-12-27] MEDS: LORAZEPAM 1 MG TABLET PO PRN ×3 (13:25→22:07)
--- NOTE | 2016-12-27 20:04 | NUR ---
Patient seen by Dr. Johnson with order to change Tylenol ES 500mg PO Q 6hrs PRN and give Excedrine ES 1 tab PO BID PRN for headache. Order carried out. Patient made aware.
[2016-12-27] MEDS: ASPIRIN/ACETAMINOPHEN/CAFFEINE TABLET PO PRN (20:33)
[2016-12-27] MEDS: ATORVASTATIN 10 MG TABLET PO SCH (20:36)
[2016-12-27 21:20] VITALS: BP 156/82
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
[2016-12-27] MEDS: ZOLPIDEM 5 MG TABLET PO PRN (23:40)
--- NOTE | 2016-12-27 23:40 | NUR ---
Dr. Maynard gave order for Marjan, carried out. All meds routine and PRNs have been given to pt. Please see EMar for administration times. Pt constantly re-oriented to reality. Close observation maintained at all times.
[2016-12-27] MEDS ORDERED: ZOLPIDEM 5 MG TABLET ONE (23:51)
--- NOTE | 2016-12-28 03:00 | NUR ---
Pt finally sleeping. In no apparent acute distress. Call ortiz on hand at all times.
[2016-12-28] MEDS: DICYCLOMINE HCL 10 MG CAPSULE PO SCH ×3 (06:00→17:16)
--- NOTE | 2016-12-28 06:30 | NUR ---
Pleasant this AM. States had a good sleep. However, pt refused AM due meds despite explanations. States to call RN when ready to take meds. Will endorse to Day RN.
[2016-12-28] MEDS: PANTOPRAZOLE SODIUM 40 MG TABLET.DR PO SCH (06:31)
[2016-12-28 08:00] VITALS: BP 159/90
[2016-12-28] MEDS: ACETAMINOPHEN ES 500 MG TABLET PO PRN (08:16)
[2016-12-28] MEDS: DULOXETINE 30 MG CAPSULE.DR PO SCH (08:16)
[2016-12-28] MEDS: CARBIDOPA/LEVODOPA 25-100MG TABLET PO SCH ×4 (08:16→20:02)
[2016-12-28] MEDS: GABAPENTIN 300 MG CAPSULE PO SCH ×3 (08:16→17:16)
[2016-12-28] MEDS: LOSARTAN POTASSIUM 50 MG TABLET PO SCH ×2 (08:22→20:01)
[2016-12-28] MEDS: HYDROCORTISONE 10 MG TABLET PO SCH ×2 (08:24→17:17)
[2016-12-28] MEDS: hydrALAZINE HCL 10 MG TABLET PO PRN (08:28)
[2016-12-28] MEDS: FLUDROCORTISONE ACETATE 0.1 MG TABLET PO SCH (08:29)
[2016-12-28] MEDS: LORAZEPAM 1 MG TABLET PO PRN ×2 (08:35→19:00)
[2016-12-28] MEDS: ONDANSETRON HCL 4 MG TABLET PO PRN ×2 (09:33→19:00)
[2016-12-28] MEDS ORDERED: CLONIDINE HCL 0.1 MG TABLET PO PRN (12:30)
--- NOTE | 2016-12-28 13:29 | NUR ---
Spoke with Dr. Maynard regarding pt's high blood pressure this am and full report given. New orders received.
[2016-12-28] MEDS: ASPIRIN/ACETAMINOPHEN/CAFFEINE TABLET PO PRN (17:16)
--- NOTE | 2016-12-28 19:30 | NUR ---
PT ALERT YET FORGETFUL LAYING IN BED. ASKING FOR ATIVAN, DAYSHIFT NURSE GAVE ATIVAN AT 1900. EXPLAINED TO PT SHE HAD ALREADY RECEIVED THE MEDICATION. PT UNDERSTOOD. NO DISTRESS NOTED. CLEAN AND DRY. BED ALARM ON. SAFETY MAINTAINED. CALL LIGHT WITHIN REACH. WILL CONTINUE TO MONITOR.
[2016-12-28] MEDS: ATORVASTATIN 10 MG TABLET PO SCH (20:01)
[2016-12-28] MEDS: CLONIDINE HCL 0.1 MG TABLET PO SCH (20:02)
[2016-12-28 20:52] VITALS: BP 172/97
--- NOTE | 2016-12-28 21:40 | NUR ---
PT FOUND ON FLOOR IN SITTING POSITION. PT ALERT YET FORGETFUL. PT STATED " I DID NOT HIT MY HEAD AND I HAVE NO PAIN". VS WNL 152/76 HR 75. O2 SAT WNL. HELPED BACK INTO BED BY HELP OF NURSING STAFF. EXPLAINED TO PT THE NEED TO USE CALL LIGHT BEFORE GETTING UP TO USE COMMODE. PT STATED SHE UNDERSTOOD. NO DISTRESS NOTED. SKIN CHECK COMPLETED. CALLED DR AYDIN NAVARRETE, NEW ORDERS GIVEN AND PLACED. CALL LIGHT WITHIN REACH. WILL CONTINUE TO MONITOR. BED ALARM ON.
--- NOTE | 2016-12-28 23:00 | NUR ---
CALLED DR PERRIN INSTEAD OF DR ARVIND ZARAGOZA. CALLED DR ZARAGOZA AND EXPLAINED THE EVENT OF THE FALL, ORDERS OF CT HEAD ALREADY COMPLETED AND EXPLAINED NEUROLOGICAL CHECKS Q6 FOR [address]. [address] RESULTS OF CT OF THE HEAD NOT RESULTED YET. PLACED CALL TO DR PERRIN, TO EXPLAIN DR ZARAGOZA PT, AWAITING CALL BACK. TRIED TO REACH NEXT OF KIN, NO NUMBER LISTED FOR FAMILY MEMBER.
[2016-12-29] MEDS: DICYCLOMINE HCL 10 MG CAPSULE PO SCH ×4 (00:20→17:25)
[2016-12-29] MEDS: PANTOPRAZOLE SODIUM 40 MG TABLET.DR PO SCH (06:07)
--- NOTE | 2016-12-29 06:39 | NUR ---
PT ALERT IN BED. TRIED GETTING OUT OF BED AGAIN THIS MORNING WITHOUT ASSISTANCE, VERY FORGETFUL, EDUCATED HER AGAIN TO CALL BEFORE GETTING OUT OF BED. COMPLIANT WITH MEDICATIONS. NEUROLOGICAL CHECKS COMPLETE FOR THE SHIFT. WILL ENDORSE TO CONTINUE Q 6 HOURS FOR 24 HOURS. CALLED RADIOLOGY STILL AWAITING RESULTS OF HEAD CT. ASKED PT FOR SON'S PHONE NUMBER AND CANNOT REMEMBER. WILL ENDORSE TO DAYSHIFT CONCERNING FALL IF SON CALLS TO LET HIM KNOW. CLEAN AND DRY. SAFETY MAINTAINED. CALL LIGHT WITHIN REACH. BED ALARM ON.
--- NOTE | 2016-12-29 07:09 | NUR ---
SKYLER FROM RADIOLOGY CALLED AND WAS GOING TO SPEAK WITH THE RADIOLOGIST CONCERNING HEAD CT RESULTS AND TO LET THE NEXT SHIFT KNOW.
[2016-12-29 08:00] VITALS: BP 175/106
[2016-12-29] MEDS: DULOXETINE 30 MG CAPSULE.DR PO SCH (08:07)
[2016-12-29] MEDS: CARBIDOPA/LEVODOPA 25-100MG TABLET PO SCH ×4 (08:08→21:25)
[2016-12-29] MEDS: GABAPENTIN 300 MG CAPSULE PO SCH ×3 (08:08→17:25)
[2016-12-29] MEDS: FLUDROCORTISONE ACETATE 0.1 MG TABLET PO SCH (08:09)
[2016-12-29] MEDS: LOSARTAN POTASSIUM 50 MG TABLET PO SCH ×2 (08:10→21:24)
[2016-12-29] MEDS: CLONIDINE HCL 0.1 MG TABLET PO SCH (08:10)
[2016-12-29] MEDS: HYDROCORTISONE 10 MG TABLET PO SCH ×2 (08:11→17:26)
[2016-12-29] MEDS: ASPIRIN/ACETAMINOPHEN/CAFFEINE TABLET PO PRN (13:45)
[2016-12-29] MEDS: ONDANSETRON HCL 4 MG TABLET PO PRN (13:48)
[2016-12-29 20:17] VITALS: BP 161/93
--- NOTE | 2016-12-29 20:30 | NUR ---
Patient sitting up in bed. Son, Courtney Farias at bedside. Notified son for patient's fall incident last night. Son was very sincere and verbalized to the patient to always call for help when needed and not to get up on her own. I also reiterated to her to make sure she calls for help when assistance is needed. Notified son that we did not have any contact information for family, so we were unable to notify any one last night. Son gave me contact number and placed in patient's chart. Call light is at bedside. Both son and patient verbalizes understanding. Bed alarm is on. Call light within reach. All needs attended to promptly. Will continue to monitor.
[2016-12-29] MEDS ORDERED: CLONIDINE HCL 0.1 MG TABLET PO SCH (21:00)
[2016-12-29] MEDS: ATORVASTATIN 10 MG TABLET PO SCH (21:24)
[2016-12-29] MEDS ORDERED: CLONIDINE HCL 0.2 MG TABLET ONE (21:39)
[2016-12-29] MEDS ORDERED: CLONIDINE HCL 0.1 MG TABLET ONE (21:43)
[2016-12-30] MEDS: ZOLPIDEM 5 MG TABLET PO PRN (01:34)
[2016-12-30] MEDS: CARBIDOPA/LEVODOPA 25-100MG TABLET PO SCH ×5 (01:50→20:04)
--- NOTE | 2016-12-30 02:30 | NUR ---
Patient is awake. Patient trying to get out of bed to use bedside commode. Bed alarm went off. Verbalized to patient to use call light when she wants to get up. Reminded patient of risks and benefits. Nursing staff assisted patient to bedside commode. All needs attended to promptly. Call light within reach. Will continue to monitor. Reminded patient to call for help when need.
[2016-12-30] MEDS: ASPIRIN/ACETAMINOPHEN/CAFFEINE TABLET PO PRN (02:45)
[2016-12-30] MEDS: LORAZEPAM 1 MG TABLET PO PRN ×3 (02:45→21:34)
[2016-12-30] MEDS: ACETAMINOPHEN ES 500 MG TABLET PO PRN ×3 (02:46→20:02)
--- NOTE | 2016-12-30 05:33 | NUR ---
1929: Received pt AAOX3, BP elevated 161/93 otherwise VSS and cardiac meds administered per eMAR, LCTAB, denies SOB, BS present [id number], abd soft,voiding well, amb to [facility] with standby assist. High Fall Risk plan implemented; bed in low position; call light within reach; bed alarm on. pt instructed to call for assistance before getting oob; pt verbalized understanding but unable to successfully return demonstration. will continue to reinforce education and round frequently. 0: pt asleep laying in bed; appears comfortable; family member at bedside earlier and son encouraged patient to use call light prior to getting oob. return demonstration successfull. 0130 frequent bed alarming and pt more forgetful. appears anxious. ambien administered for sleep and tylenol administered for pain, generalized and burning 01/20 @ 0140. 0200 bed alarming; pt states she wants norco and something for sleep. medication education provided and reinforced. pt states she wants ativan and xanax and excedrin. more patient education provided and reinforced. pt verbalized understanding. Addendum: 12/30/16 at 0556 by BLUE WARNER RN 0245 pt states she wants more medication. ativan and excedrin administered per order with minimal relief. intermittent sleep [id number] so far this shift. with repeated requests for opiods, anxiolytics, and tylenol/excedrin within the alloted frequency time frame. calming and supportive measures provided by staff. with moderate relief. 0555 pt asleep at this time; frequent rounds; bed in low position and alarm on. pathway to [facility] free from clutter; call light with in reach; will continue with poc
[2016-12-30 06:04] LABS: BASOPHILS % (AUTO) 0.2 % (0.0-2.0); EOSINOPHILS % (AUTO) 0.6 % (0.0-7.0); HEMOGLOBIN 11.2 G/DL (12.0-16.0); LYMPHOCYTES # (AUTO) 1.2 K/UL (0.8-4.8); LYMPHOCYTES % (AUTO) 24.5 % (20.5-51.5); MEAN CORPUSCULAR HEMOGLOBIN 22.4 UUG (27.0-31.0); MEAN CORPUSCULAR HGB CONC 31 g/dL (32.0-37.0); MEAN CORPUSCULAR VOLUME 71.8 FL (81.0-99.0); MONOCYTES # (AUTO) 0.5 K/UL (0.1-1.30); MONOCYTES % (AUTO) 9.5 % (0.0-11.0); NEUTROPHILS # (AUTO) 3.1 K/UL (1.8-8.9); NEUTROPHILS % (AUTO) 65.2 % (38.5-71.5); PLATELET COUNT (AUTO) 210 K/UL (150-450); RED BLOOD CELL COUNT(AUTO) 5.01 MIL/UL (4.2-5.4); WHITE BLOOD COUNT (AUTO) 4.8 K/UL (4.0-11.2)
[2016-12-30] MEDS: PANTOPRAZOLE SODIUM 40 MG TABLET.DR PO SCH (06:11)
[2016-12-30 06:21] LABS: ALANINE AMINOTRANSFERASE 8 U/L (14-59); ALKALINE PHOSPHATASE 62 U/L (50-136); ASPARTATE AMINOTRANSFERASE 14 U/L (15-37); BILIRUBIN,TOTAL 0.3 mg/dL (0.2-1.0); CARBON DIOXIDE 27 mmol/L (21-32); CREATININE 0.8 mg/dL (0.6-1.3); GLUCOSE 112 mg/dL (74-106); MAGNESIUM 1.9 mg/dL (1.8-2.4); PHOSPHOROUS 3.7 mg/dL (2.5-4.9); TOTAL PROTEIN, SERUM 5.8 g/dL (6.4-8.2); UREA NITROGEN, BLOOD 10 mg/dL (7-18)
[2016-12-30 06:27] LABS: CHLORIDE 86 mmol/L (98-107); POTASSIUM 3.5 mmol/L (3.5-5.1)
[2016-12-30] MEDS: DICYCLOMINE HCL 10 MG CAPSULE PO SCH ×4 (06:47→16:43)
[2016-12-30] MEDS ORDERED: DICYCLOMINE HCL 10 MG CAPSULE ONE (06:53)
[2016-12-30] MEDS: DULOXETINE 30 MG CAPSULE.DR PO SCH (07:59)
[2016-12-30] MEDS: LOSARTAN POTASSIUM 50 MG TABLET PO SCH ×2 (07:59→20:04)
[2016-12-30] MEDS: FLUDROCORTISONE ACETATE 0.1 MG TABLET PO SCH (07:59)
[2016-12-30] MEDS: GABAPENTIN 300 MG CAPSULE PO SCH ×3 (07:59→16:06)
[2016-12-30 08:00] VITALS: BP 195/109
[2016-12-30] MEDS: hydrALAZINE HCL 10 MG TABLET PO PRN (08:00)
[2016-12-30] MEDS ORDERED: CLONIDINE HCL 0.2 MG TABLET PO SCH ×2 (08:49→13:00)
[2016-12-30] MEDS: HYDROCORTISONE 10 MG TABLET PO SCH ×2 (09:01→16:09)
[2016-12-30] MEDS: ONDANSETRON HCL 4 MG TABLET PO PRN ×2 (09:01→20:02)
--- NOTE | 2016-12-30 09:49 | NUR ---
pt seen in rounds. pt vitals bp 195/ 109. hydralazine administered forbp >160 systolic. provided other meds along with tylenol for complaints of pain and zofran for complaints of nausea. bp rechecked at 121/81 hr 96. pt is showing signs of forgetfulness because she doesnt remember she was given meds. pt was reminded and redirected.
[2016-12-30 10:00] VITALS: BP 121/80
[2016-12-30] MEDS: DICLOFENAC 75 MG TABLET.DR PO SCH ×2 (10:32→16:43)
--- NOTE | 2016-12-30 10:35 | NUR ---
pt given voltaren at 1030.
[2016-12-30] MEDS: CLONIDINE HCL 0.3 MG TABLET PO SCH ×2 (12:42→16:12)
--- NOTE | 2016-12-30 17:38 | NUR ---
PT COMPLAINED ABOUT NEW MEDICATIONS SUCH PAIN MEDICATION VOLTAREN. PT HAD HIGH BLOOD PRESSURE. GIVEN BP MEDS. RECHECKED BP AT [facility]. PT SHOWED LOW BP. HELD OF CLONIDINE.3MG. RECHECKED VITALS IN THE AFTERNOON. PT SYSTOLIC AROUND 140S. PT GIVEN BP MEDS TO LOWER BP. PT GIVEN VOLTAREN AT AFTERNOON. PT SHOWED DISSATISFACTION WITH MED AND CALLED md. PT ALSO GIVEN XANAX 1MG AT 1700. PT REASSESSED. PT MORE DROWSY. WILL CONTINUE MONITOR PT AND ENDORSE NEW ORDERS.
--- NOTE | 2016-12-30 19:15 | NUR ---
Received report from NIKOLAS Rutledge. Pt has been moaning, crying and restless, c/o of head to toe pain 9/10, expressed not wanting to have Voltaren pain meds that was recently prescribed for her pain.
--- NOTE | 2016-12-30 20:00 | NUR ---
Tylenol ES w/ zofran 6mg/po (as requested) given for her pain. Pt requested to have [place] however MD d/c'ed it. Pt was very persistent to have [place], was shouting, restless, called her son to help her, she wants to go to ER , she wants the staff to call primary MD. Explained the mechanism of medications and reiterated to achieved therapeutic level of pain meds, explained the disadvantage of constantly changing pain meds.Administered Parkinson's meds including her BP meds.Continue monitor.
[2016-12-30] MEDS: ATORVASTATIN 10 MG TABLET PO SCH (20:04)
[2016-12-30 20:39] VITALS: BP 117/73
--- NOTE | 2016-12-30 22:00 | NUR ---
Pt's son at the bedside and approached RN to give his mom anti-anxiety meds, given per request (ativan 1mg/po).
--- NOTE | 2016-12-31 | NUR ---
Juan Daniel Vazquez. Pt was soundly asleep , she was awake all the time per day shift, this is the only time for this day that was found asleep.
--- NOTE | 2016-12-31 | NUR ---
Pt observed to be resting for 2 hours already. Breathing normally.
--- NOTE | 2016-12-31 02:45 | NUR ---
Pt found standing up at the bedside , assisted her back to bed, made bed and made her comfortable. Denies any discomfort and no anxiety noted.
[2016-12-31] MEDS: PANTOPRAZOLE SODIUM 40 MG TABLET.DR PO SCH (06:42)
[2016-12-31] MEDS: DICYCLOMINE HCL 10 MG CAPSULE PO SCH ×4 (06:42→18:04)
--- NOTE | 2016-12-31 07:00 | NUR ---
Report to NIKOLAS hanks
[2016-12-31 08:08] LABS: CARBON DIOXIDE 27 mmol/L (21-32); CHLORIDE 86 mmol/L (98-107); CREATININE 0.8 mg/dL (0.6-1.3); GLUCOSE 91 mg/dL (74-106); MAGNESIUM 1.9 mg/dL (1.8-2.4); PHOSPHOROUS 3.3 mg/dL (2.5-4.9); POTASSIUM 3.4 mmol/L (3.5-5.1)
[2016-12-31 08:10] VITALS: BP 143/83
[2016-12-31] MEDS ORDERED: DULOXETINE 30 MG CAPSULE.DR PO SCH (09:00)
[2016-12-31] MEDS: CARBIDOPA/LEVODOPA 25-100MG TABLET PO SCH ×4 (09:05→21:09)
[2016-12-31] MEDS: DICLOFENAC 75 MG TABLET.DR PO SCH (09:08)
[2016-12-31] MEDS: GABAPENTIN 300 MG CAPSULE PO SCH ×3 (09:08→18:09)
[2016-12-31] MEDS: FLUDROCORTISONE ACETATE 0.1 MG TABLET PO SCH (09:09)
[2016-12-31] MEDS: HYDROCORTISONE 10 MG TABLET PO SCH ×2 (09:09→18:10)
[2016-12-31] MEDS: CLONIDINE HCL 0.3 MG TABLET PO SCH ×3 (09:10→17:00)
[2016-12-31] MEDS: LOSARTAN POTASSIUM 50 MG TABLET PO SCH ×2 (09:10→21:08)
--- NOTE | 2016-12-31 10:24 | NUR ---
PT states that pt had blood pressure 71/43. pt returned back to bed. rechecked vital. bp 106/59. pt continues to complain of pain. pt is lethargic. will continue to reassess pt and monitor.
[2016-12-31] MEDS ORDERED: POTASSIUM CHLORIDE 20 MEQ POWDER PACKET PO ONE (13:00)
[2016-12-31 13:08] LABS: UREA NITROGEN, BLOOD 13 mg/dL (7-18)
[2016-12-31] MEDS ORDERED: IV SODIUM CHLORIDE 3% 500 ML IV SCH (13:30)
[2016-12-31 18:13] LABS: THYROID STIMULATING HORMONE 0.325 mIU/mL (0.358-3.740)
--- NOTE | 2016-12-31 18:13 | NUR ---
pt had blood presssure of 84/ 53 hr 83. pt is asymptomatic pt on hypertonic solution. afebrile. o2 sat within normal limits. will notify
[2016-12-31 18:21] LABS: URIC ACID 3.4 mg/dL (2.6-6.0)
--- NOTE | 2016-12-31 18:22 | NUR ---
bp 109/67 pulse 80 after being rechecked. pt asymptomatic and complains of pain. Addendum: 12/31/16 at 1842 by SHERIDAN KEN RN didnt give bp med because it was decreased.
[2016-12-31 18:26] LABS: CARBON DIOXIDE 27 mmol/L (21-32); CHLORIDE 88 mmol/L (98-107); CREATININE 0.9 mg/dL (0.6-1.3); GLUCOSE 207 mg/dL (74-106); POTASSIUM 3.6 mmol/L (3.5-5.1); UREA NITROGEN, BLOOD 17 mg/dL (7-18)
--- NOTE | 2016-12-31 20:00 | NUR ---
RECEIVED PATIENT AWAKE IN BED. A/O X3. NEEDS FREQUENT REDIRECTION. UPSET THAT MD WILL NOT ORDER PAIN MEDICATION. PATIENT IS EASILY AGITATED AND BECOMES UPSET. WILL CONTINUE TO MONITOR AND ASSESS. BP SLIGHTLY ELEVATED. ALL OTHER VSS. PATIENT HAS IV RUNNING TO LEFT FA #22 GAUGE. NO RESP. DISTRESS NOTED. CALL LIGHT IN REACH. BED ALARM ON. ALL NEEDS ATTENDED.
[2016-12-31] MEDS: LORAZEPAM 1 MG TABLET PO PRN (21:08)
[2016-12-31] MEDS: ATORVASTATIN 10 MG TABLET PO SCH (21:08)
[2016-12-31] MEDS: ACETAMINOPHEN ES 500 MG TABLET PO PRN (21:08)
[2016-12-31 21:09] VITALS: BP 151/87
--- NOTE | 2016-12-31 21:10 | NUR ---
PATIENT IS VERY ANXIOUS AND C/O OF GENERALIZED PAIN. PATIENT GIVEN ATIVAN 1MG PO PRN FOR ANXIETY AND TYLENOL ES 500MG PO PRN FOR PAIN. WILL CONTINUE TO MONITOR AND ASSESS.
--- NOTE | 2016-12-31 22:30 | NUR ---
PATIENT ASLEEP IN BED. NO S/S OF PAIN OR DISCOMFORT. NO RESP. DISTRESS NOTED. BED ALARM ON. CALL LIGHT IN REACH. ALL NEEDS ATTENDED. WILL CONTINUE TO MONITOR.
--- NOTE | 2017-01-01 | NUR ---
PATIENT ASLEEP. WAS GIVEN ATIVAN 1MG PO PRN EARLIER. PATIENT IS NOT AWAKE AND ALERT ENOUGH TO TAKE PO MEDICATION. WILL CONTINUE TO MONITOR.
[2017-01-01] MEDS: ACETAMINOPHEN ES 500 MG TABLET PO PRN ×3 (02:59→18:18)
[2017-01-01] MEDS: DICYCLOMINE HCL 10 MG CAPSULE PO SCH ×4 (06:21→18:18)
[2017-01-01] MEDS: PANTOPRAZOLE SODIUM 40 MG TABLET.DR PO SCH (06:21)
--- NOTE | 2017-01-01 06:26 | NUR ---
PATIENT ASLEEP IN BED. EASILY AROUSABLE. SLEPT WELL THROUGHOUT THE NIGHT. NO C/O PAIN AT THIS TIME. BED ALARM ON. WILL CONTINUE TO MONITOR AND ASSESS.
[2017-01-01 08:00] VITALS: BP 119/74
[2017-01-01 08:35] LABS: BASOPHILS % (AUTO) 0.1 % (0.0-2.0); EOSINOPHILS % (AUTO) 0.7 % (0.0-7.0); HEMATOCRIT 35.5 % (37-47); HEMOGLOBIN 11.4 G/DL (12.0-16.0); LYMPHOCYTES # (AUTO) 1.4 K/UL (0.8-4.8); LYMPHOCYTES % (AUTO) 27.1 % (20.5-51.5); MEAN CORPUSCULAR HGB CONC 32 g/dL (32.0-37.0); MEAN CORPUSCULAR VOLUME 71.6 FL (81.0-99.0); MONOCYTES # (AUTO) 0.5 K/UL (0.1-1.30); MONOCYTES % (AUTO) 9.1 % (0.0-11.0); NEUTROPHILS # (AUTO) 3.2 K/UL (1.8-8.9); PLATELET COUNT (AUTO) 238 K/UL (150-450); RED BLOOD CELL COUNT(AUTO) 4.95 MIL/UL (4.2-5.4); WHITE BLOOD COUNT (AUTO) 5.1 K/UL (4.0-11.2)
[2017-01-01] MEDS: FLUDROCORTISONE ACETATE 0.1 MG TABLET PO SCH (08:48)
[2017-01-01] MEDS: CARBIDOPA/LEVODOPA 25-100MG TABLET PO SCH ×2 (08:48→12:31)
[2017-01-01] MEDS: GABAPENTIN 300 MG CAPSULE PO SCH ×3 (08:49→18:18)
[2017-01-01] MEDS: CLONIDINE HCL 0.3 MG TABLET PO SCH ×3 (08:50→17:00)
[2017-01-01] MEDS: LOSARTAN POTASSIUM 50 MG TABLET PO SCH ×2 (08:50→20:42)
[2017-01-01] MEDS: HYDROCORTISONE 10 MG TABLET PO SCH ×2 (08:51→18:18)
[2017-01-01 09:09] LABS: BAND % (MANUAL) 1 % (0-10); EOSINOPHILS % (MANUAL) 1 % (0-8); LYMPHOCYTES % (MANUAL) 30 % (20-40); MONOCYTES % (MANUAL) 5 % (2-10); NEUTROPHILS % (MANUAL) 63 % (42-75)
[2017-01-01 09:12] LABS: ALANINE AMINOTRANSFERASE 11 U/L (14-59); ALKALINE PHOSPHATASE 73 U/L (50-136); ASPARTATE AMINOTRANSFERASE 12 U/L (15-37); BILIRUBIN,TOTAL 0.2 mg/dL (0.2-1.0); CARBON DIOXIDE 28 mmol/L (21-32); CHLORIDE 95 mmol/L (98-107); CREATININE 0.8 mg/dL (0.6-1.3); GLUCOSE 90 mg/dL (74-106); MAGNESIUM 2.1 mg/dL (1.8-2.4); PHOSPHOROUS 3.3 mg/dL (2.5-4.9); TOTAL PROTEIN, SERUM 5.6 g/dL (6.4-8.2); UREA NITROGEN, BLOOD 16 mg/dL (7-18)
[2017-01-01] MEDS ORDERED: NAPROXEN 250 MG TABLET PO PRN (14:30)
--- NOTE | 2017-01-01 14:48 | NUR ---
TEAM CONFERENCE MEETING 01/01/17
[2017-01-01] MEDS: LORAZEPAM 1 MG TABLET PO PRN (18:18)
[2017-01-01] MEDS: CARBIDOPA/LEVODOPA 25-250MG TABLET PO SCH (18:18)
--- NOTE | 2017-01-01 18:22 | NUR ---
held off clonodine due to possible drop in blood pressure. bp 121/74 hr 75. pt is asymptomatic and continues to complain of pain. md prescribed naproxen starting tomorrow. pt is beligerent and continues to yell.
[2017-01-01] MEDS ORDERED: HYDROCODONE/APAP 5-325MG TABLET PO PRN (18:45)
[2017-01-01] MEDS: ATORVASTATIN 10 MG TABLET PO SCH (20:42)
[2017-01-01 21:08] VITALS: BP 152/86
[2017-01-01 22:12] LABS: *ANTI-SCLERODERMA-70 AB <0.2 AI (0.0-0.9); *SJOGREN'S ANTI-SS-A <0.2 AI (0.0-0.9); *SJOGREN'S ANTI-SS-B <0.2 AI (0.0-0.9); *SMITH ANTIBODIES <0.2 AI (0.0-0.9); ANTI-DNA(DS) AB, QN <1 IU/mL (0-9)
[2017-01-02] MEDS: DICYCLOMINE HCL 10 MG CAPSULE PO SCH ×4 (00:40→17:00)
[2017-01-02] MEDS: PANTOPRAZOLE SODIUM 40 MG TABLET.DR PO SCH (06:11)
[2017-01-02 07:56] LABS: BASOPHILS % (AUTO) 0.2 % (0.0-2.0); EOSINOPHILS % (AUTO) 0.8 % (0.0-7.0); HEMATOCRIT 35.7 % (37-47); HEMOGLOBIN 11.3 G/DL (12.0-16.0); LYMPHOCYTES # (AUTO) 1.3 K/UL (0.8-4.8); LYMPHOCYTES % (AUTO) 25.7 % (20.5-51.5); MEAN CORPUSCULAR HEMOGLOBIN 22.5 UUG (27.0-31.0); MEAN CORPUSCULAR HGB CONC 32 g/dL (32.0-37.0); MEAN CORPUSCULAR VOLUME 71.3 FL (81.0-99.0); MONOCYTES # (AUTO) 0.5 K/UL (0.1-1.30); NEUTROPHILS # (AUTO) 3.1 K/UL (1.8-8.9); NEUTROPHILS % (AUTO) 63.3 % (38.5-71.5); PLATELET COUNT (AUTO) 230 K/UL (150-450); RED BLOOD CELL COUNT(AUTO) 5.01 MIL/UL (4.2-5.4); WHITE BLOOD COUNT (AUTO) 4.9 K/UL (4.0-11.2)
[2017-01-02] MEDS: HYDROCODONE/APAP 5-325MG TABLET PO PRN (07:59)
[2017-01-02 08:00] VITALS: BP 156/94
[2017-01-02] MEDS: LOSARTAN POTASSIUM 50 MG TABLET PO SCH ×2 (08:00→21:49)
[2017-01-02] MEDS: GABAPENTIN 300 MG CAPSULE PO SCH ×3 (08:00→16:51)
[2017-01-02] MEDS: CLONIDINE HCL 0.3 MG TABLET PO SCH ×3 (08:01→16:51)
[2017-01-02] MEDS: FLUDROCORTISONE ACETATE 0.1 MG TABLET PO SCH (08:01)
[2017-01-02] MEDS: CARBIDOPA/LEVODOPA 25-250MG TABLET PO SCH ×3 (08:01→16:51)
[2017-01-02] MEDS: VENLAFAXINE XR 37.5 MG CAP.SR.24H PO SCH (08:01)
[2017-01-02] MEDS: HYDROCORTISONE 10 MG TABLET PO SCH ×2 (08:03→16:51)
[2017-01-02 08:25] LABS: ALANINE AMINOTRANSFERASE 15 U/L (14-59); ALKALINE PHOSPHATASE 65 U/L (50-136); ASPARTATE AMINOTRANSFERASE 13 U/L (15-37); BILIRUBIN,TOTAL 0.2 mg/dL (0.2-1.0); CARBON DIOXIDE 31 mmol/L (21-32); CHLORIDE 96 mmol/L (98-107); CREATININE 0.7 mg/dL (0.6-1.3); GLUCOSE 95 mg/dL (74-106); MAGNESIUM 2.2 mg/dL (1.8-2.4); PHOSPHOROUS 3.2 mg/dL (2.5-4.9); POTASSIUM 3.4 mmol/L (3.5-5.1); TOTAL PROTEIN, SERUM 5.7 g/dL (6.4-8.2); UREA NITROGEN, BLOOD 13 mg/dL (7-18)
[2017-01-02] MEDS: MIRALAX 17 GM POWD.PACK PO PRN (09:52)
[2017-01-02 09:57] LABS: EOSINOPHILS % (MANUAL) 1 % (0-8); LYMPHOCYTES % (MANUAL) 25 % (20-40); MONOCYTES % (MANUAL) 9 % (2-10); NEUTROPHILS % (MANUAL) 65 % (42-75)
[2017-01-02] MEDS: SENNOSIDES 1 TABLET PO PRN (14:07)
[2017-01-02] MEDS: LORAZEPAM 1 MG TABLET PO PRN (14:07)
[2017-01-02] MEDS: ACETAMINOPHEN ES 500 MG TABLET PO PRN (14:07)
[2017-01-02] MEDS ORDERED: POTASSIUM CHLORIDE 20 MEQ POWDER PACKET PO ONE (14:30)
--- NOTE | 2017-01-02 16:15 | NUR ---
Dr. Walker in to examine patient. No orders received at this time.
--- NOTE | 2017-01-02 17:50 | NUR ---
Dr. Guillaume called and notified of pt's request to exchange [phone] for excedrin. Awaiting call back.
[2017-01-02 21:48] VITALS: BP 159/98
[2017-01-02] MEDS: ATORVASTATIN 10 MG TABLET PO SCH (21:49)
[2017-01-02] MEDS ORDERED: MINERAL OIL FLEET ENEMA 133 ML BOTTLE RC PRN (22:45)
[2017-01-02] MEDS ORDERED: MINERAL OIL FLEET ENEMA 133 ML BOTTLE RC ONE (22:45)
[2017-01-02] MEDS ORDERED: GOLYTELY 4000 ML BOTTLE PO ONE (22:45)
[2017-01-03] MEDS: DICYCLOMINE HCL 10 MG CAPSULE PO SCH ×4 (00:17→20:39)
[2017-01-03] MEDS ORDERED: DICYCLOMINE HCL 10 MG CAPSULE ONE (02:14)
--- NOTE | 2017-01-03 05:55 | NUR ---
Patient slept intermittently throughout the night, had no complains of pain or discomfort till this morning. Had no episodes of SOB. Assisted to the commode as needed. Orders for enema to be given and if no relief or bm after administration patient is to start the golytely. Enema administered and will continue to monitor.
[2017-01-03] MEDS: HYDROCODONE/APAP 5-325MG TABLET PO PRN ×2 (05:59→15:18)
[2017-01-03] MEDS: PANTOPRAZOLE SODIUM 40 MG TABLET.DR PO SCH (06:00)
[2017-01-03] MEDS ORDERED: FLEET ENEMA 133 ML BOTTLE RC ONE (06:07)
--- NOTE | 2017-01-03 07:58 | NUR ---
pt had a bowel movemment. natural sciences professor states that pt had medium amount. will hold fleet enema. will continue to reassesss pt for complications of constipation.
[2017-01-03 08:10] LABS: COMPLEMENT, C3 SERUM 87 mg/dL (82-167); COMPLEMENT, C4 SERUM 17 mg/dL (14-44)
[2017-01-03 08:20] LABS: BASOPHILS % (AUTO) 0.1 % (0.0-2.0); EOSINOPHILS % (AUTO) 0.6 % (0.0-7.0); HEMATOCRIT 36.2 % (37-47); HEMOGLOBIN 11.6 G/DL (12.0-16.0); LYMPHOCYTES # (AUTO) 1.7 K/UL (0.8-4.8); LYMPHOCYTES % (AUTO) 26.1 % (20.5-51.5); MEAN CORPUSCULAR HEMOGLOBIN 23.2 UUG (27.0-31.0); MEAN CORPUSCULAR HGB CONC 32 g/dL (32.0-37.0); MONOCYTES # (AUTO) 0.6 K/UL (0.1-1.30); MONOCYTES % (AUTO) 8.6 % (0.0-11.0); NEUTROPHILS # (AUTO) 4.1 K/UL (1.8-8.9); NEUTROPHILS % (AUTO) 64.6 % (38.5-71.5); PLATELET COUNT (AUTO) 263 K/UL (150-450); RED BLOOD CELL COUNT(AUTO) 5.02 MIL/UL (4.2-5.4)
[2017-01-03 08:22] LABS: ALANINE AMINOTRANSFERASE 16 U/L (14-59); ALKALINE PHOSPHATASE 68 U/L (50-136); ASPARTATE AMINOTRANSFERASE 17 U/L (15-37); BILIRUBIN,TOTAL 0.3 mg/dL (0.2-1.0); CARBON DIOXIDE 29 mmol/L (21-32); CHLORIDE 95 mmol/L (98-107); CREATININE 0.7 mg/dL (0.6-1.3); GLUCOSE 100 mg/dL (74-106); PHOSPHOROUS 4.1 mg/dL (2.5-4.9); POTASSIUM 2.9 mmol/L (3.5-5.1); UREA NITROGEN, BLOOD 15 mg/dL (7-18)
[2017-01-03 08:30] LABS: WHITE BLOOD COUNT (AUTO) 6.4 K/UL (4.0-11.2)
[2017-01-03 08:39] VITALS: BP 102/66
[2017-01-03] MEDS: LOSARTAN POTASSIUM 50 MG TABLET PO SCH ×2 (09:00→21:51)
[2017-01-03] MEDS: CLONIDINE HCL 0.3 MG TABLET PO SCH ×3 (09:00→17:00)
[2017-01-03] MEDS ORDERED: HYDROXYZINE PAMOATE 25 MG CAPSULE PO PRN (09:00)
[2017-01-03] MEDS: GABAPENTIN 300 MG CAPSULE PO SCH ×3 (09:04→20:32)
[2017-01-03] MEDS: VENLAFAXINE XR 37.5 MG CAP.SR.24H PO SCH (09:04)
[2017-01-03] MEDS: HYDROCORTISONE 10 MG TABLET PO SCH ×2 (09:04→20:33)
[2017-01-03] MEDS: busPIRone 5 MG TABLET PO SCH ×2 (09:04→20:33)
[2017-01-03] MEDS: CARBIDOPA/LEVODOPA 25-250MG TABLET PO SCH ×3 (09:04→20:33)
[2017-01-03] MEDS: FLUDROCORTISONE ACETATE 0.1 MG TABLET PO SCH (09:04)
[2017-01-03 09:56] LABS: EOSINOPHILS % (MANUAL) 1 % (0-8); LYMPHOCYTES % (MANUAL) 25 % (20-40); MONOCYTES % (MANUAL) 13 % (2-10); NEUTROPHILS % (MANUAL) 61 % (42-75)
[2017-01-03] MEDS: ONDANSETRON HCL 4 MG TABLET PO PRN ×2 (12:19→21:51)
--- NOTE | 2017-01-03 12:30 | NUR ---
pt had vomiting episode and is anxious. bp 147/86. pt given catapress vistaril and zofran for n/v. will reassess in 30 mins.
[2017-01-03] MEDS ORDERED: POTASSIUM CHLORIDE 20 MEQ POWDER PACKET PO ONE ×2 (14:00→17:00)
[2017-01-03 20:00] VITALS: BP 154/92
[2017-01-03] MEDS: ATORVASTATIN 10 MG TABLET PO SCH (21:50)
[2017-01-03] MEDS: ZOLPIDEM 5 MG TABLET PO PRN (21:51)
[2017-01-04] MEDS: DICYCLOMINE HCL 10 MG CAPSULE PO SCH ×4 (00:47→17:51)
[2017-01-04] MEDS: PANTOPRAZOLE SODIUM 40 MG TABLET.DR PO SCH (06:21)
--- NOTE | 2017-01-04 06:26 | NUR ---
Patient slept well throughout the night, had no complains of pain or discomfort, no signs of respiratory distress. Maintained clean and dry, call light within reach, all needs attended to.
[2017-01-04 08:00] VITALS: BP 113/75
--- NOTE | 2017-01-04 08:00 | NUR ---
RECEIVED PATIENT AWAKE AND ALERT. NO S/S OF DISTRESS. PATIENT COMPLAINED OF PAIN RATED 8/10 OVER LOWER EXTREMITIES. PRN PAIN MEDICATIONS GIVEN. CALL LIGHT WITHIN REACH. FOR DISCHARGE TODAY.
[2017-01-04 08:03] LABS: BASOPHILS % (AUTO) 0.3 % (0.0-2.0); EOSINOPHILS % (AUTO) 0.3 % (0.0-7.0); HEMOGLOBIN 11.9 G/DL (12.0-16.0); LYMPHOCYTES # (AUTO) 1.4 K/UL (0.8-4.8); LYMPHOCYTES % (AUTO) 22.7 % (20.5-51.5); MEAN CORPUSCULAR HEMOGLOBIN 22.5 UUG (27.0-31.0); MEAN CORPUSCULAR HGB CONC 31 g/dL (32.0-37.0); MEAN CORPUSCULAR VOLUME 72.3 FL (81.0-99.0); MONOCYTES # (AUTO) 0.4 K/UL (0.1-1.30); MONOCYTES % (AUTO) 6.8 % (0.0-11.0); NEUTROPHILS # (AUTO) 4.5 K/UL (1.8-8.9); NEUTROPHILS % (AUTO) 69.9 % (38.5-71.5); PLATELET COUNT (AUTO) 245 K/UL (150-450); RED BLOOD CELL COUNT(AUTO) 5.26 MIL/UL (4.2-5.4); WHITE BLOOD COUNT (AUTO) 6.3 K/UL (4.0-11.2)
[2017-01-04 08:05] LABS: ALANINE AMINOTRANSFERASE 16 U/L (14-59); ALKALINE PHOSPHATASE 60 U/L (50-136); ASPARTATE AMINOTRANSFERASE 13 U/L (15-37); BILIRUBIN,TOTAL 0.2 mg/dL (0.2-1.0); CARBON DIOXIDE 32 mmol/L (21-32); CHLORIDE 96 mmol/L (98-107); CREATININE 0.7 mg/dL (0.6-1.3); GLUCOSE 98 mg/dL (74-106); MAGNESIUM 2.2 mg/dL (1.8-2.4); PHOSPHOROUS 3.8 mg/dL (2.5-4.9); POTASSIUM 3.5 mmol/L (3.5-5.1); TOTAL PROTEIN, SERUM 5.9 g/dL (6.4-8.2); UREA NITROGEN, BLOOD 16 mg/dL (7-18)
[2017-01-04] MEDS: HYDROCODONE/APAP 5-325MG TABLET PO PRN ×2 (08:09→16:38)
[2017-01-04] MEDS: FLUDROCORTISONE ACETATE 0.1 MG TABLET PO SCH (08:09)
[2017-01-04] MEDS: GABAPENTIN 300 MG CAPSULE PO SCH ×3 (08:10→16:38)
[2017-01-04] MEDS: CARBIDOPA/LEVODOPA 25-250MG TABLET PO SCH ×3 (08:11→16:37)
[2017-01-04] MEDS: busPIRone 5 MG TABLET PO SCH ×2 (08:11→16:37)
[2017-01-04] MEDS: LOSARTAN POTASSIUM 50 MG TABLET PO SCH (08:11)
[2017-01-04] MEDS: VENLAFAXINE XR 37.5 MG CAP.SR.24H PO SCH (08:12)
[2017-01-04] MEDS: CLONIDINE HCL 0.3 MG TABLET PO SCH ×3 (08:12→16:38)
[2017-01-04] MEDS: HYDROCORTISONE 10 MG TABLET PO SCH ×2 (08:13→16:38)
[2017-01-04 11:13] LABS: BAND % (MANUAL) 1 % (0-10); EOSINOPHILS % (MANUAL) 1 % (0-8); LYMPHOCYTES % (MANUAL) 26 % (20-40); MONOCYTES % (MANUAL) 9 % (2-10); NEUTROPHILS % (MANUAL) 63 % (42-75)
--- NOTE | 2017-01-04 11:50 | NUR ---
Patient complained of nausea, PRN medications given
[2017-01-04] MEDS: ONDANSETRON HCL 4 MG TABLET PO PRN (11:51)
--- NOTE | 2017-01-04 14:24 | NUR ---
Seen by Dr Cherry, patient was not cleared to go home. Informed Son
--- NOTE | 2017-01-04 16:03 | NUR ---
For transfer to second floor per recommendation of Dr. Cherry. Dr Johnson informed and ordered for transfer. Not any from of distress. Pain rated as 7/10. Pain medication not due at this time. V/S as follows: BP: 125/82, SPO2- 95%, NH-81, T- 98.2
--- NOTE | 2017-01-04 16:32 | NUR ---
Patient complained of head ache and mandible rated as 8/10
[2017-01-04 16:38] VITALS: BP 125/82
--- NOTE | 2017-01-04 17:48 | NUR ---
Report given to Sameera/NIKOLAS. Due medications given
[2017-01-04] MEDS ORDERED: LOSARTAN POTASSIUM 50 MG TABLET ONE (22:49)
== END 2017-01-04 19:32 | disposition other institution (70) | DRG 57 ==
PROVIDERS: ADMIT Physical Medicine & Rehabilitation Pain Medicine; ATTEND Physical Medicine & Rehabilitation Pain Medicine
DX: G20 Parkinson's disease (principal); E27.40 Unspecified adrenocortical insufficiency; E87.1 Hypo-osmolality and hyponatremia; E22.2 Syndrome of inappropriate secretion of antidiuretic hormone; R11.0 Nausea; G89.29 Other chronic pain; G62.9 Polyneuropathy, unspecified; G90.9 Disorder of the autonomic nervous system, unspecified; K27.9 Peptic ulcer, site unspecified, unspecified as acute or chronic, without hemorrhage or perforation; I10 Essential (primary) hypertension; I95.1 Orthostatic hypotension; K59.00 Constipation, unspecified; M19.90 Unspecified osteoarthritis, unspecified site; Z81.8 Family history of other mental and behavioral disorders; Z86.73 Personal history of transient ischemic attack (TIA), and cerebral infarction without residual deficits; Z86.79 Personal history of other diseases of the circulatory system; R07.0 Pain in throat; R51 Headache; R26.9 Unspecified abnormalities of gait and mobility; R42 Dizziness and giddiness; R63.0 Anorexia; M79.605 Pain in left leg; M79.604 Pain in right leg; R53.83 Other fatigue; F43.23 Adjustment disorder with mixed anxiety and depressed mood; M25.60 Stiffness of unspecified joint, not elsewhere classified; M62.81 Muscle weakness (generalized)
CPT/HCPCS: 36415; 70450; 83735; 84100; 84300; 84443; 84480; 84550; 85025; 85651; 86038; 86160; 92526; 92610; 97110; 97112; 97116; 97161; 97530; 97535; A4663; J3490; Q0162

== ENCOUNTER 2017-01-04 16:54 | Inpatient (IN) | payer MEDICARE, OTHER ==
[~2017-01-04] VITALS: Ht 167.6 cm; Wt 56.2 kg
[~2017-01-04 16:54] MED LIST changes: +FLUD0.1T PO
[2017-01-04 18:20] VITALS: BP 194/109
--- NOTE | 2017-01-04 18:27 | NUR ---
PATIENT WAS BROUGHT FROM [facility]UTE [facility]. BP WAS TAKEN 194/109. CHARGE NURSE WILL NOTIFIED DR. LAM TO GET ORDERS. PER NIKOLAS LICEA REPORT BP WAS WNL LEVEL SBP 125, STATED THAT SHE GAVE PATIENT CLONIDINE AT 1630. WILL CONTINUE MONITORING.
--- NOTE | 2017-01-04 19:00 | NUR ---
REPORT GIVEN TO NIKOLAS MIXON. TMS WAS GIVEN TO NURSE AND EXPLAINED ABOUT MEDICATION RECONCILIATION, AND CALL DR. BURNETTE TO CONFIRM. BP STILL HIGH 179/111 HR 72. SAFETY AND COMFORT PROVIDED BY STAFF.
[2017-01-04] MEDS ORDERED: Z GUARD REMEDY PASTE 57 GM TUBE TOP PRN (19:15)
[2017-01-04] MEDS ORDERED: CLONIDINE HCL 0.3 MG TABLET PO PRN (19:15)
[2017-01-04 19:30] VITALS: BP 152/95
--- NOTE | 2017-01-04 19:30 | NUR ---
RECEIVED PT RESTING IN BED, ALERT, RESPONSIVE, IN NO ACUTE DISTRESS, PT'S BP DECREASED TO 152/95 HR 73. WILL CONTINUE TO MONITOR.
--- NOTE | 2017-01-04 20:00 | NUR ---
CALLED DR. BURNETTE TO VERIFY IF ORDERS FROM MED RECON/TMS SHOULD BE CONTINUED PER DR. ZARAGOZA'S ORDER STATUS 01/04/[address] BURNETTE CONFIRMED.
[2017-01-04] MEDS ORDERED: NAPROXEN 250 MG TABLET PO PRN (21:30)
[2017-01-04] MEDS: LOSARTAN POTASSIUM 50 MG TABLET PO SCH (22:40)
--- NOTE | 2017-01-04 23:30 | NUR ---
CHECKED PT'S BP 183/107 HR 63 (LEFT ARM) AND 195/95 (RIGHT ARM). PT IS ALERT, IN NO ACUTE DISTRESS. DR. BURNETTE MADE AWARE, NEW ORDERS FOR BP PRN GIVEN AND CARRIED OUT. WILL CONTINUE TO MONITOR.
[2017-01-05] MEDS: CLONIDINE HCL 0.1 MG TABLET PO PRN (00:03)
[2017-01-05] MEDS ORDERED: CLONIDINE HCL 0.1 MG TABLET ONE (00:13)
[2017-01-05] MEDS ORDERED: NAPROXEN 500 MG TABLET ONE (02:54)
--- NOTE | 2017-01-05 04:00 | NUR ---
PT'S BP 204/112 (R ARM) HR 56; 196/109 (L ARM). PT C/O OF BURNING PAIN 8/[address] BURNETTE MADE AWARE. NEW ORDERS FOR PAIN PRN TAKEN AND CARRIED OUT. PER DR. BURNETTE, TREAT PAIN FIRST THEN MEDS PRN FOR BP. WILL CONTINUE TO MONITOR.
[2017-01-05] MEDS: MORPHINE SULFATE 2 MG/1 ML DISP.SYRIN IV PRN ×4 (04:48→22:59)
[2017-01-05] MEDS ORDERED: MORPHINE SULFATE 2 MG/1 ML DISP.SYRIN ONE ×2 (04:48→13:01)
--- NOTE | 2017-01-05 05:35 | NUR ---
PT BP STILL ELEVATED AT 180/97 HR 73. WILL CONTINUE TO MONITOR. Addendum: 01/05/17 at 0536 by KIMI CHAVIRA RN AWARE AND BIOMATHEMATICIAN AWARE OF PATIENT'S BP STATUS.
[2017-01-05] MEDS ORDERED: hydrALAZINE HCL 25 MG TABLET PO SCH (06:30)
[2017-01-05] MEDS ORDERED: METOPROLOL TARTRATE 5 MG/5 ML VIAL IVP ONE (06:30)
--- NOTE | 2017-01-05 06:30 | NUR ---
PT'S BP STILL ELEVATED 173/97 HR 60. ADMINISTERED HYDRALAZINE 25MG PRN ORDERED. PATIENT IS ALERT, IN NO ACUTE DISTRESS, RESPONSIVE. WILL CONTINUE TO MONITOR. CALL LIGHT WITHIN REACH, BED ALARM ON.
[2017-01-05] MEDS ORDERED: hydrALAZINE HCL 25 MG TABLET ONE (06:48)
[2017-01-05 07:07] LABS: *BILIRUBIN,URIN NEGATIVE (NEGATIVE); *BLOOD, URINE NEGATIVE (NEGATIVE); *CLARITY,URINE CLEAR (CLEAR); *COLOR,URINE LIGHT YELLOW (YELLOW); *KETONES,URINE NEGATIVE (NEGATIVE); *PROTEIN,URINE NEGATIVE (NEGATIVE); *UROBILINOGEN,URINE 0.2 E.U./dl (NORMAL); LEUKOCYTE ESTERASE ,URINE NEGATIVE (NEGATIVE); NITRITE, URINE NEGATIVE (NEGATIVE); UGLUCOSE NEGATIVE (NEGATIVE)
[2017-01-05 07:49] LABS: BACTERIA,URINE FEW /HPF (NONE SEEN); RBC,URINE 0-3 /HPF (0-3); SQUAMOUS EPITHELIAL CELL,UR FEW /HPF (NONE SEEN); WBC,URINE 0-3 /HPF (0-3)
[2017-01-05] MEDS: HYDROCORTISONE 10 MG TABLET PO SCH ×2 (08:32→17:11)
[2017-01-05] MEDS: CLONIDINE HCL 0.3 MG TABLET PO SCH ×3 (08:33→22:00)
[2017-01-05] MEDS: busPIRone 5 MG TABLET PO SCH ×2 (08:34→17:09)
[2017-01-05] MEDS: CARBIDOPA/LEVODOPA 25-250MG TABLET PO SCH ×3 (08:34→17:09)
[2017-01-05] MEDS: LOSARTAN POTASSIUM 50 MG TABLET PO SCH ×2 (08:34→20:06)
[2017-01-05] MEDS ORDERED: CLONIDINE HCL 0.3 MG TABLET ONE (08:39)
[2017-01-05] MEDS ORDERED: busPIRone 5 MG TABLET ONE (08:39)
[2017-01-05] MEDS ORDERED: LOSARTAN POTASSIUM 50 MG TABLET ONE (08:40)
[2017-01-05] MEDS ORDERED: VENLAFAXINE XR 37.5 MG CAP.SR.24H ONE (08:40)
[2017-01-05] MEDS ORDERED: CARBIDOPA/LEVODOPA 25-250MG TABLET ONE ×2 (08:41→13:01)
[2017-01-05] MEDS ORDERED: FLUDROCORTISONE ACETATE 0.1 MG TABLET PO SCH (09:00)
[2017-01-05] MEDS ORDERED: VENLAFAXINE XR 37.5 MG CAP.SR.24H PO SCH (09:00)
[2017-01-05] MEDS: FLUDROCORTISONE ACETATE 0.1 MG TABLET PO SCH (10:04)
[2017-01-05] MEDS ORDERED: FLUDROCORTISONE ACETATE 0.1 MG TABLET ONE (10:14)
[2017-01-05 12:44] VITALS: BP 94/62
--- NOTE | 2017-01-05 14:20 | NUR ---
PT FEELS NAUSEOUS, PER DR. ZARAGOZA 8MG ZOFRAN Q8H PRN
[2017-01-05] MEDS ORDERED: ONDANSETRON 4 MG/2 ML VIAL IV PRN (14:30)
[2017-01-05] MEDS: ONDANSETRON INJ 8 MG in IV NORMAL SALINE 50 ML IV PRN (15:36)
[2017-01-05 16:20] VITALS: BP 157/91
[2017-01-05] MEDS ORDERED: SENNOSIDES 1 TABLET PO PRN (16:45)
[2017-01-05] MEDS: DICYCLOMINE HCL 10 MG CAPSULE PO SCH (17:09)
[2017-01-05] MEDS: GABAPENTIN 300 MG CAPSULE PO SCH (17:09)
[2017-01-05] MEDS: HYDROXYZINE PAMOATE 25 MG CAPSULE PO PRN (18:13)
--- NOTE | 2017-01-05 19:40 | NUR ---
NO CHANGES NOTED. PT IS COMFORTABLY LAYING IN BED. NO S/S OF RESPIRATORY DISTRESS NOTED. ALL SAFETY NEEDS ARE MET. IV INTACT/PATENT.
[2017-01-05] MEDS: ATORVASTATIN 10 MG TABLET PO SCH (20:02)
[2017-01-05] MEDS: MIRALAX 17 GM POWD.PACK PO PRN (20:09)
[2017-01-05 20:10] VITALS: BP_SYST 154; BP_SYST 193; BP_DIAS 106; BP_DIAS 94
[2017-01-05] MEDS: ACETAMINOPHEN ES 500 MG TABLET PO PRN (22:55)
[2017-01-06] MEDS: DICYCLOMINE HCL 10 MG CAPSULE PO SCH ×4 (00:11→18:00)
[2017-01-06 00:29] VITALS: BP 91/51
[2017-01-06] MEDS: ACETAMINOPHEN ES 500 MG TABLET PO PRN ×2 (00:44→06:42)
[2017-01-06 04:00] VITALS: BP 104/62
[2017-01-06] MEDS: MORPHINE SULFATE 2 MG/1 ML DISP.SYRIN IV PRN (04:24)
[2017-01-06] MEDS: PANTOPRAZOLE SODIUM 40 MG TABLET.DR PO SCH (06:03)
[2017-01-06] MEDS: CLONIDINE HCL 0.3 MG TABLET PO SCH ×3 (06:04→22:00)
--- NOTE | 2017-01-06 06:20 | NUR ---
PT SLEPT INTERMITTENTLY, IN NO ACUTE DISTRESS. PT IS ON TELE - SINUS RHYTHM. PT C/O OF BURNING ON BILATERAL LEGS. PAIN MANAGEMENT/PRN FOR PAIN ADMINISTERED ORDERED, REPOSITIONED FOR COMFORT, ASSISTED WITH TOILETING NEEDS. CALL LIGHT WITHIN REACH, BED ALARM ON. WILL CONTINUE TO MONITOR.
[2017-01-06 06:44] LABS: BASOPHILS % (AUTO) 0.5 % (0.0-2.0); EOSINOPHILS % (AUTO) 0.7 % (0.0-7.0); HEMATOCRIT 34.5 % (37-47); HEMOGLOBIN 11.1 G/DL (12.0-16.0); LYMPHOCYTES # (AUTO) 1.4 K/UL (0.8-4.8); LYMPHOCYTES % (AUTO) 23.8 % (20.5-51.5); MEAN CORPUSCULAR HGB CONC 32 g/dL (32.0-37.0); MONOCYTES # (AUTO) 0.5 K/UL (0.1-1.30); MONOCYTES % (AUTO) 8.5 % (0.0-11.0); NEUTROPHILS % (AUTO) 66.5 % (38.5-71.5); PLATELET COUNT (AUTO) 270 K/UL (150-450); RED BLOOD CELL COUNT(AUTO) 4.79 MIL/UL (4.2-5.4); WHITE BLOOD COUNT (AUTO) 5.9 K/UL (4.0-11.2)
[2017-01-06 06:58] LABS: CARBON DIOXIDE 33 mmol/L (21-32); CHLORIDE 91 mmol/L (98-107); CREATININE 0.9 mg/dL (0.6-1.3); GLUCOSE 137 mg/dL (74-106); UREA NITROGEN, BLOOD 21 mg/dL (7-18)
--- NOTE | 2017-01-06 07:05 | NUR ---
RECEIVED CALL FROM ELIAS REGARDING CRITICAL LAB PT'S POTASSIUM VALUE AT 2.6 READ BACK RESULTS. PATIENT IS ALERT, IN NO ACUTE DISTRESS, TELE SINUS RHYTHM. WILL ENDORSE TO DAY SHIFT RN.
[2017-01-06 07:07] LABS: POTASSIUM 2.6 mmol/L (3.5-5.1)
--- NOTE | 2017-01-06 07:10 | NUR ---
CALLED DR. BURNETTE, LEFT MESSAGE REGARDING CRITICAL LAB OF PATIENT. CRITICAL LAB PROTOCOL FOLLOWED.
--- NOTE | 2017-01-06 07:20 | NUR ---
SPOKE WITH DR. BURNETTE REGARDING POTASSIUM LEVEL OF PATIENT AT 2.6 NEW ORDERS TAKEN, READ BACK ORDERS, AND CARRIED OUT. WILL ENDORSE TO DAY SHIFT RN.
[2017-01-06] MEDS ORDERED: POTASSIUM CHLORIDE 20 MEQ TAB.PRT.SR PO ONE (07:30)
[2017-01-06] MEDS ORDERED: POTASSIUM CHLORIDE 20 MEQ POWDER PACKET PO ONE (07:45)
[2017-01-06] MEDS ORDERED: POTASSIUM CHLORIDE 20 MEQ POWDER PACKET GT ONE (07:45)
[2017-01-06] MEDS ORDERED: POTASSIUM CHLORIDE 50 ML IV SCH (07:45)
[2017-01-06] MEDS: POTASSIUM CHLORIDE 50 ML IV SCH ×4 (08:32→16:28)
[2017-01-06] MEDS: LOSARTAN POTASSIUM 50 MG TABLET PO SCH ×2 (08:36→20:31)
[2017-01-06] MEDS: GABAPENTIN 300 MG CAPSULE PO SCH ×3 (08:37→17:00)
[2017-01-06] MEDS: FLUDROCORTISONE ACETATE 0.1 MG TABLET PO SCH (08:37)
[2017-01-06] MEDS: CARBIDOPA/LEVODOPA 25-250MG TABLET PO SCH ×3 (08:37→17:00)
[2017-01-06 08:47] LABS: BAND % (MANUAL) 1 % (0-10); EOSINOPHILS % (MANUAL) 2 % (0-8); LYMPHOCYTES % (MANUAL) 33 % (20-40); MONOCYTES % (MANUAL) 9 % (2-10); NEUTROPHILS % (MANUAL) 55 % (42-75)
[2017-01-06] MEDS: busPIRone 5 MG TABLET PO SCH ×3 (08:54→17:00)
--- NOTE | 2017-01-06 08:54 | NUR ---
BUSPAR AM DOSE ALREADY GIVEN
[2017-01-06] MEDS: SODIUM CHLORIDE 1,000 MG TABLET PO SCH ×3 (09:08→17:00)
[2017-01-06] MEDS: HYDROCORTISONE 10 MG TABLET PO SCH ×2 (09:09→17:00)
[2017-01-06] MEDS: HYDROCODONE/APAP 5-325MG TABLET PO PRN ×2 (09:20→15:11)
[2017-01-06] MEDS: ARIPIPRAZOLE 2 MG TABLET PO SCH (10:50)
[2017-01-06 11:43] VITALS: BP 100/64
[2017-01-06] MEDS: ONDANSETRON HCL 4 MG TABLET PO PRN (12:15)
[2017-01-06 15:44] VITALS: BP 149/89
[2017-01-06] MEDS: ONDANSETRON INJ 8 MG in IV NORMAL SALINE 50 ML IV PRN (17:32)
--- NOTE | 2017-01-06 19:30 | NUR ---
RESTING IN BED, CALM AND COMFORTABLE. NO ACUTE DISTRESS NOTED AT THIS TIME. NO COMPLAINTS OF PAIN NOTED AT THIS TIME. SAFETY INITIATED. NEEDS ATTENDED. CALL LIGHT WITHIN REACH. WILL CONTINUE TO MONITOR
[2017-01-06 20:00] VITALS: BP 114/67
[2017-01-06] MEDS: ATORVASTATIN 10 MG TABLET PO SCH (20:31)
[2017-01-07] MEDS: DICYCLOMINE HCL 10 MG CAPSULE PO SCH ×4 (00:03→17:33)
[2017-01-07] MEDS: HYDROCODONE/APAP 5-325MG TABLET PO PRN ×2 (00:50→21:56)
[2017-01-07] MEDS: CLONIDINE HCL 0.3 MG TABLET PO SCH ×3 (05:47→21:56)
[2017-01-07] MEDS: PANTOPRAZOLE SODIUM 40 MG TABLET.DR PO SCH (06:10)
--- NOTE | 2017-01-07 06:27 | NUR ---
ABLE TO SLEEP INTERMITTENTLY DURING THE SHIFT. NO ACUTE DISTRESS NOTED. REMAINED CALM AND COMFORTABLE. ALL DUE MEDS GIVEN ORDERED. NEEDS ATTENDED. KEPT CLEAN AND DRY. KEPT COMFORTABLE AT ALL TIMES. CALL LIGHT WITHIN REACH
[2017-01-07 06:33] VITALS: BP 152/83
[2017-01-07 08:26] LABS: CARBON DIOXIDE 32 mmol/L (21-32); CHLORIDE 95 mmol/L (98-107); CREATININE 0.9 mg/dL (0.6-1.3); GLUCOSE 100 mg/dL (74-106); MAGNESIUM 2.2 mg/dL (1.8-2.4); PHOSPHOROUS 4.3 mg/dL (2.5-4.9); POTASSIUM 3.4 mmol/L (3.5-5.1); UREA NITROGEN, BLOOD 21 mg/dL (7-18); URIC ACID 3.4 mg/dL (2.6-6.0)
[2017-01-07 08:44] LABS: THYROID STIMULATING HORMONE 0.702 mIU/mL (0.358-3.740)
[2017-01-07] MEDS: SODIUM CHLORIDE 1,000 MG TABLET PO SCH ×3 (09:00→17:33)
[2017-01-07] MEDS: busPIRone 5 MG TABLET PO SCH ×3 (09:00→17:33)
[2017-01-07] MEDS: ARIPIPRAZOLE 2 MG TABLET PO SCH (09:00)
[2017-01-07] MEDS: GABAPENTIN 300 MG CAPSULE PO SCH ×3 (09:00→17:33)
[2017-01-07] MEDS: HYDROCORTISONE 10 MG TABLET PO SCH ×2 (09:00→17:00)
[2017-01-07] MEDS: LOSARTAN POTASSIUM 50 MG TABLET PO SCH ×2 (09:00→20:23)
[2017-01-07] MEDS: FLUDROCORTISONE ACETATE 0.1 MG TABLET PO SCH (09:00)
[2017-01-07] MEDS: CARBIDOPA/LEVODOPA 25-250MG TABLET PO SCH ×3 (09:00→17:33)
[2017-01-07] MEDS: ONDANSETRON INJ 8 MG in IV NORMAL SALINE 50 ML IV PRN (10:45)
[2017-01-07 12:00] VITALS: BP 157/77
[2017-01-07] MEDS ORDERED: POTASSIUM CHLORIDE 20 MEQ TAB.PRT.SR PO ONE (13:00)
[2017-01-07] MEDS: LORAZEPAM 2 MG/1 ML VIAL IV PRN (13:27)
[2017-01-07 15:56] VITALS: BP 144/80
[2017-01-07 20:00] VITALS: BP 177/96
--- NOTE | 2017-01-07 20:07 | NUR ---
SLEEPING AT THIS TIME BUT CAN EASILY BE AWAKEN. NOTED ELEVATED BP OF 177/96. WILL ADMINISTER BP MEDICATION ORDERED. NEEDS ATTENDED. NO ACUTE DISTRESS NOTED. CALL LIGHT WITHIN REACH. WILL CONTINUE TO MONITOR
[2017-01-07] MEDS: ATORVASTATIN 10 MG TABLET PO SCH (20:22)
[2017-01-07] MEDS: MIRALAX 17 GM POWD.PACK PO PRN (20:35)
[2017-01-07 21:45] VITALS: BP 154/81
--- NOTE | 2017-01-08 00:19 | NUR ---
SLEEPING AT THIS TIME. ABLE TO WAKE UP BUT EASILY FALLS BACK ASLEEP, UNABLE TO GIVE MEDICATION
[2017-01-08] MEDS: ACETAMINOPHEN ES 500 MG TABLET PO PRN ×2 (03:30→08:42)
[2017-01-08 05:27] VITALS: BP 151/87
[2017-01-08] MEDS: DICYCLOMINE HCL 10 MG CAPSULE PO SCH ×4 (05:42→17:13)
[2017-01-08] MEDS: CLONIDINE HCL 0.3 MG TABLET PO SCH ×2 (05:42→13:41)
[2017-01-08] MEDS: HYDROCODONE/APAP 5-325MG TABLET PO PRN ×3 (05:43→17:47)
[2017-01-08] MEDS: PANTOPRAZOLE SODIUM 40 MG TABLET.DR PO SCH (06:09)
--- NOTE | 2017-01-08 06:12 | NUR ---
SLEPT INTERMITTENTLY DURING THE SHIFT. PAIN CONTROLLED WITH MEDICATION ORDERED. ABLE TO HAVE BM YESTERDAY. ALL DUE MEDS GIVEN ORDERED. NEEDS ATTENDED. SAFETY MAINTAINED. CALL LIGHT WITHIN REACH
[2017-01-08 06:45] LABS: BASOPHILS % (AUTO) 0.1 % (0.0-2.0); EOSINOPHILS # (AUTO) 0.1 K/uL (0.0-0.7); EOSINOPHILS % (AUTO) 1.4 % (0.0-7.0); HEMATOCRIT 35.9 % (37-47); HEMOGLOBIN 11.6 G/DL (12.0-16.0); LYMPHOCYTES # (AUTO) 1.8 K/UL (0.8-4.8); LYMPHOCYTES % (AUTO) 28.9 % (20.5-51.5); MEAN CORPUSCULAR HEMOGLOBIN 23.1 UUG (27.0-31.0); MEAN CORPUSCULAR HGB CONC 32 g/dL (32.0-37.0); MEAN CORPUSCULAR VOLUME 71.5 FL (81.0-99.0); MONOCYTES # (AUTO) 0.7 K/UL (0.1-1.30); MONOCYTES % (AUTO) 10.6 % (0.0-11.0); NEUTROPHILS # (AUTO) 3.7 K/UL (1.8-8.9); PLATELET COUNT (AUTO) 231 K/UL (150-450); RED BLOOD CELL COUNT(AUTO) 5.03 MIL/UL (4.2-5.4); WHITE BLOOD COUNT (AUTO) 6.3 K/UL (4.0-11.2)
[2017-01-08 06:53] LABS: CARBON DIOXIDE 31 mmol/L (21-32); CHLORIDE 96 mmol/L (98-107); CREATININE 0.9 mg/dL (0.6-1.3); GLUCOSE 88 mg/dL (74-106); PHOSPHOROUS 4.6 mg/dL (2.5-4.9); POTASSIUM 3.2 mmol/L (3.5-5.1); UREA NITROGEN, BLOOD 16 mg/dL (7-18)
[2017-01-08 07:31] LABS: EOSINOPHILS % (MANUAL) 2 % (0-8); LYMPHOCYTES % (MANUAL) 28 % (20-40); MONOCYTES % (MANUAL) 7 % (2-10); NEUTROPHILS % (MANUAL) 63 % (42-75)
[2017-01-08] MEDS: ARIPIPRAZOLE 2 MG TABLET PO SCH (08:40)
[2017-01-08] MEDS: CARBIDOPA/LEVODOPA 25-250MG TABLET PO SCH ×3 (08:41→17:13)
[2017-01-08] MEDS: SODIUM CHLORIDE 1,000 MG TABLET PO SCH ×3 (08:41→17:13)
[2017-01-08] MEDS: busPIRone 5 MG TABLET PO SCH ×3 (08:41→17:13)
[2017-01-08] MEDS: FLUDROCORTISONE ACETATE 0.1 MG TABLET PO SCH (08:41)
[2017-01-08] MEDS: LORAZEPAM 2 MG/1 ML VIAL IV PRN ×2 (08:42→16:16)
[2017-01-08] MEDS: GABAPENTIN 300 MG CAPSULE PO SCH ×3 (08:42→17:13)
[2017-01-08] MEDS: LOSARTAN POTASSIUM 50 MG TABLET PO SCH (08:42)
[2017-01-08] MEDS: HYDROCORTISONE 10 MG TABLET PO SCH ×2 (08:42→17:13)
[2017-01-08] MEDS ORDERED: BUSP5TAB3 PO (08:48)
[2017-01-08] MEDS ORDERED: SODI100010 PO (08:48)
[2017-01-08] MEDS ORDERED: ARIP2TAB3 PO (08:48)
[2017-01-08] MEDS ORDERED: CARB1TAB24 PO (08:48)
[2017-01-08] MEDS ORDERED: LORA0.5T PO (08:48)
[2017-01-08] MEDS ORDERED: ACET-2605 PO (08:48)
[2017-01-08] MEDS ORDERED: LOSA50TA3 PO (08:48)
[2017-01-08] MEDS ORDERED: HYDR-3326 PO (08:48)
[2017-01-08] MEDS ORDERED: HYDR-3895 PO (08:48)
[2017-01-08] MEDS ORDERED: ATOR10TA PO (08:48)
[2017-01-08] MEDS ORDERED: CLON0.1T14 PO (08:48)
[2017-01-08] MEDS ORDERED: HYDR10TA PO (08:48)
[2017-01-08] MEDS ORDERED: POLY17PO4 PO (08:48)
[2017-01-08] MEDS ORDERED: FLUD0.1T3 PO (08:48)
[2017-01-08] MEDS ORDERED: CLON0.3T4 PO (08:48)
[2017-01-08] MEDS: ONDANSETRON HCL 4 MG TABLET PO PRN (09:48)
[2017-01-08 11:34] VITALS: BP 104/54
--- NOTE | 2017-01-08 11:37 | NUR ---
Discharge Plan: Once patient is medically cleared patient will be discharged to [facility] [[address] [place] [address]]. Bernice confirmed the patient's admission. Patient and Son [Sánchez [phone]] are aware and agreeable with discharge plans. Patient will transported via ambulance.
[2017-01-08] MEDS: ONDANSETRON INJ 8 MG in IV NORMAL SALINE 50 ML IV PRN (11:44)
[2017-01-08] MEDS ORDERED: POTASSIUM CHLORIDE 20 MEQ POWDER PACKET PO ONE (13:15)
[2017-01-08] MEDS: CLONIDINE HCL 0.1 MG TABLET PO PRN (15:08)
[2017-01-08 15:45] VITALS: BP 183/99
[2017-01-08] MEDS: HYDROXYZINE PAMOATE 25 MG CAPSULE PO PRN (17:13)
--- NOTE | 2017-01-08 18:44 | NUR ---
patient was discharged to [facility] this evening. Son was notified. Belongings taken with patient
== END 2017-01-08 18:45 | DRG 644 ==
LOC: MED 16:54 → TELE 01-05 06:21 → MED 01-06 18:00
PROVIDERS: ADMIT Internal Medicine Nephrology; ATTEND Internal Medicine Nephrology
DX: E27.40 Unspecified adrenocortical insufficiency (principal); E87.1 Hypo-osmolality and hyponatremia; G90.8 Other disorders of autonomic nervous system; I95.1 Orthostatic hypotension; R11.0 Nausea; T40.605A Adverse effect of unspecified narcotics, initial encounter; Y92.239 Unspecified place in hospital as the place of occurrence of the external cause; E83.42 Hypomagnesemia; H81.399 Other peripheral vertigo, unspecified ear; Z79.899 Other long term (current) drug therapy; G89.29 Other chronic pain; Z86.79 Personal history of other diseases of the circulatory system; F41.9 Anxiety disorder, unspecified; G62.9 Polyneuropathy, unspecified; I10 Essential (primary) hypertension; Z74.09 Other reduced mobility; G20 Parkinson's disease; F43.23 Adjustment disorder with mixed anxiety and depressed mood
CPT/HCPCS: 36415; 83735; 84100; 84443; 84550; 85025; 92523; 97116; 97161; 97530; A4663; J2060; J2270; J2405; J3480; J3490; J7040; Q0162

== ENCOUNTER 2017-01-09 13:10 | Inpatient (IN) | payer MEDICARE, OTHER ==
[~2017-01-09] VITALS: Ht 162.6 cm; Wt 49.9 kg
[~2017-01-09 13:10] MED LIST changes: -ALPR1TAB7 PO; +ARIP2TAB3 PO; +ATOR10TA PO; +BUSP5TAB3 PO; -CARB-93 PO; +CARB1TAB24 PO; +CLON0.1T14 PO; +CLON0.3T4 PO; -DIAZ5TAB4 PO; -FLUD0.1T PO; +FLUD0.1T3 PO; +HYDR-3326 PO; +HYDR-3895 PO; +LORA0.5T PO; -LOSA100T15 PO; +LOSA50TA3 PO; +POLY17PO4 PO; +SODI100010 PO
[2017-01-09] MEDS ORDERED: ONDANSETRON 4 MG/2 ML VIAL IV ONE (14:00)
[2017-01-09] MEDS ORDERED: ONDANSETRON 4 MG/2 ML VIAL ONE (14:13)
[2017-01-09 14:19] LABS: BASOPHILS # (AUTO) 0.2 K/uL (0.0-8.0); BASOPHILS % (AUTO) 1.9 % (0.0-2.0); EOSINOPHILS # (AUTO) 0.1 K/uL (0.0-0.7); EOSINOPHILS % (AUTO) 0.8 % (0.0-7.0); HEMATOCRIT 39.4 % (37-47); HEMOGLOBIN 12.4 G/DL (12.0-16.0); LYMPHOCYTES # (AUTO) 1.4 K/UL (0.8-4.8); LYMPHOCYTES % (AUTO) 14.8 % (20.5-51.5); MEAN CORPUSCULAR HEMOGLOBIN 22.9 UUG (27.0-31.0); MEAN CORPUSCULAR HGB CONC 31 g/dL (32.0-37.0); MEAN CORPUSCULAR VOLUME 72.9 FL (81.0-99.0); MONOCYTES # (AUTO) 0.7 K/UL (0.1-1.30); NEUTROPHILS # (AUTO) 6.9 K/UL (1.8-8.9); NEUTROPHILS % (AUTO) 74.5 % (38.5-71.5); PLATELET COUNT (AUTO) 235 K/UL (150-450); RED BLOOD CELL COUNT(AUTO) 5.41 MIL/UL (4.2-5.4); WHITE BLOOD COUNT (AUTO) 9.3 K/UL (4.0-11.2)
[2017-01-09 14:22] LABS: CARBON DIOXIDE 35 mmol/L (21-32); CHLORIDE 96 mmol/L (98-107); CREATININE 1.2 mg/dL (0.6-1.3); GLUCOSE 100 mg/dL (74-106); POTASSIUM 3.6 mmol/L (3.5-5.1); UREA NITROGEN, BLOOD 18 mg/dL (7-18)
[2017-01-09 14:35] LABS: ALANINE AMINOTRANSFERASE 24 U/L (14-59); ALKALINE PHOSPHATASE 79 U/L (50-136); ASPARTATE AMINOTRANSFERASE 21 U/L (15-37); BILIRUBIN,TOTAL 0.3 mg/dL (0.2-1.0); CREATINE KINASE, TOTAL 39 U/L (26-192); TOTAL PROTEIN, SERUM 6.3 g/dL (6.4-8.2)
--- NOTE | 2017-01-09 14:49 | NUR ---
Pt resting in [facility], no acute distress noted at this time.
[2017-01-09 14:54] LABS: *CLARITY,URINE CLEAR (CLEAR); *COLOR,URINE YELLOW (YELLOW)
[2017-01-09 14:55] LABS: *BILIRUBIN,URIN NEGATIVE (NEGATIVE); *BLOOD, URINE NEGATIVE (NEGATIVE); *KETONES,URINE NEGATIVE (NEGATIVE); *PROTEIN,URINE NEGATIVE (NEGATIVE); *UROBILINOGEN,URINE 0.2 E.U./dl (NORMAL); LEUKOCYTE ESTERASE ,URINE NEGATIVE (NEGATIVE); NITRITE, URINE NEGATIVE (NEGATIVE); UGLUCOSE NEGATIVE (NEGATIVE)
[2017-01-09 15:02] LABS: BACTERIA,URINE FEW /HPF (NONE SEEN); RBC,URINE 0-3 /HPF (0-3); SQUAMOUS EPITHELIAL CELL,UR FEW /HPF (NONE SEEN); WBC,URINE 0-3 /HPF (0-3)
[2017-01-09 15:31] LABS: LYMPHOCYTES % (MANUAL) 27 % (20-40); MONOCYTES % (MANUAL) 11 % (2-10); NEUTROPHILS % (MANUAL) 62 % (42-75)
[2017-01-09 16:07] LABS: ABG BASE EXCESS 2.6 mmol/L; ABG HCO3 24.4 mmol/L; ABG PCO2 28.8 mmHg (35.0-45.0); ABG PH 7.545 (7.350-7.450); ABG SITE LEFT BRACHIAL; COHb 1.6 % (0.5-1.5); MetHb 0.2 % (0.0-1.5); O2Hb 95.1 % (94.0-97.0); VENT MODE Nasal Cannula
--- NOTE | 2017-01-09 16:47 | NUR ---
Per Dr Schafer he spoke with Dr Maynard via telephone and pt may be admitted to tele.
--- NOTE | 2017-01-09 17:15 | NUR ---
SBAR report given to Francine CONNOR via telephone.
--- NOTE | 2017-01-09 17:22 | NUR ---
Pt trans to tele floor, NAD noted.
--- NOTE | 2017-01-09 17:45 | NUR ---
NEW ADMISSION RECEIVED TO ROOM 205. SBAR REPORT RECEIVED FROM BECKY CONNOR. PATIENT ALERT AWAKE AND ORIENTED X3-4. PATIENT IN NO ACUTE DISTRESS. SR ON TELEMETRY.
[2017-01-09 18:30] VITALS: BP 185/72
[2017-01-09 19:00] VITALS: BP 138/74
--- NOTE | 2017-01-09 19:30 | NUR ---
NSG: PT RECEIVED A/O X 4, VERY ANXIOUS. C/O PAIN, ANXIETY. NEED ORDERS FR . WILL FOLLOW UP.
--- NOTE | 2017-01-09 19:32 | NUR ---
UNABLE TO FINISH ADMISSION INFORMATION. ENDORSED TO ROSANGELA CONNOR.
[2017-01-09] MEDS ORDERED: SENNOSIDES 1 TABLET PO PRN (20:00)
[2017-01-09] MEDS ORDERED: MIRALAX 17 GM POWD.PACK PO PRN (20:00)
[2017-01-09] MEDS ORDERED: ACETAMINOPHEN ES 500 MG TABLET PO PRN (20:00)
[2017-01-09] MEDS ORDERED: HYDROCODONE/APAP 5-325MG TABLET PO PRN (20:00)
[2017-01-09] MEDS ORDERED: CLONIDINE HCL 0.1 MG TABLET PO PRN (20:15)
[2017-01-09] MEDS: ACETAMINOPHEN 325 MG TABLET PO PRN (20:25)
[2017-01-09] MEDS: LORAZEPAM 0.5 MG TABLET PO PRN (20:25)
[2017-01-09] MEDS: LOSARTAN POTASSIUM 50 MG TABLET PO SCH (20:25)
[2017-01-09] MEDS: FUROSEMIDE 40 MG/4 ML VIAL IV SCH (20:25)
[2017-01-09] MEDS: ATORVASTATIN 10 MG TABLET PO SCH (20:25)
[2017-01-09] MEDS: CLONIDINE HCL 0.3 MG TABLET PO SCH (22:00)
[2017-01-09] MEDS ORDERED: Z GUARD REMEDY PASTE 57 GM TUBE TOP PRN (23:30)
[2017-01-09] MEDS: HYDROCODONE/APAP 5-325MG TABLET PO PRN (23:42)
--- NOTE | 2017-01-10 | NUR ---
NSG: PT COMFORTABLE SLEEPING. NO ACUTE DISTRESS NOTED.
[2017-01-10 00:08] VITALS: BP 132/70
[2017-01-10 04:00] VITALS: BP 127/74
[2017-01-10] MEDS: ACETAMINOPHEN 325 MG TABLET PO PRN ×2 (05:09→16:33)
[2017-01-10] MEDS: DICYCLOMINE HCL 10 MG CAPSULE PO SCH ×4 (05:09→17:45)
[2017-01-10] MEDS: CLONIDINE HCL 0.3 MG TABLET PO SCH ×3 (05:09→21:28)
--- NOTE | 2017-01-10 05:30 | NUR ---
NSG: PT AWAKE, C/O JAROCHO LEG PAIN 5/10, MEDICATED WITH TYLENOL 650MG PO. DENIES SOB. TELE, SR. HR DROPPED TO LOW 58. CONT TO MONITOR.
[2017-01-10 07:02] LABS: BASOPHILS % (AUTO) 0.4 % (0.0-2.0); EOSINOPHILS # (AUTO) 0.1 K/uL (0.0-0.7); EOSINOPHILS % (AUTO) 1.5 % (0.0-7.0); HEMOGLOBIN 11.2 G/DL (12.0-16.0); LYMPHOCYTES # (AUTO) 1.6 K/UL (0.8-4.8); LYMPHOCYTES % (AUTO) 29.6 % (20.5-51.5); MEAN CORPUSCULAR HEMOGLOBIN 22.9 UUG (27.0-31.0); MEAN CORPUSCULAR HGB CONC 32 g/dL (32.0-37.0); MEAN CORPUSCULAR VOLUME 72.3 FL (81.0-99.0); MONOCYTES # (AUTO) 0.5 K/UL (0.1-1.30); MONOCYTES % (AUTO) 9.2 % (0.0-11.0); NEUTROPHILS # (AUTO) 3.2 K/UL (1.8-8.9); NEUTROPHILS % (AUTO) 59.3 % (38.5-71.5); PLATELET COUNT (AUTO) 235 K/UL (150-450); RED BLOOD CELL COUNT(AUTO) 4.87 MIL/UL (4.2-5.4)
[2017-01-10 07:18] LABS: CARBON DIOXIDE 33 mmol/L (21-32); GLUCOSE 107 mg/dL (74-106); PHOSPHOROUS 5.1 mg/dL (2.5-4.9); UREA NITROGEN, BLOOD 18 mg/dL (7-18)
[2017-01-10 07:47] LABS: HEMATOCRIT 35.2 % (37-47); WHITE BLOOD COUNT (AUTO) 5.4 K/UL (4.0-11.2)
[2017-01-10 07:48] LABS: CHLORIDE 97 mmol/L (98-107)
--- NOTE | 2017-01-10 08:00 | NUR ---
AWAKE COOPERATE WELL NO SOB OR PAIN ON FALL /ASPIRATION PRECAUTION BED ALARM ON AND CALL LIGHT IN REACH
[2017-01-10 08:27] LABS: POTASSIUM 2.8 mmol/L (3.5-5.1)
[2017-01-10] MEDS: PANTOPRAZOLE SODIUM 40 MG TABLET.DR PO SCH (08:27)
[2017-01-10] MEDS: SODIUM CHLORIDE 1,000 MG TABLET PO SCH ×3 (08:28→16:33)
[2017-01-10] MEDS: CARBIDOPA/LEVODOPA 25-250MG TABLET PO SCH ×3 (08:28→16:33)
[2017-01-10] MEDS: LOSARTAN POTASSIUM 50 MG TABLET PO SCH ×2 (08:28→21:28)
[2017-01-10] MEDS: FUROSEMIDE 40 MG/4 ML VIAL IV SCH (08:28)
[2017-01-10] MEDS: busPIRone 5 MG TABLET PO SCH ×3 (08:28→16:33)
[2017-01-10] MEDS: HYDROCODONE/APAP 5-325MG TABLET PO PRN ×3 (08:28→19:45)
[2017-01-10] MEDS: FLUDROCORTISONE ACETATE 0.1 MG TABLET PO SCH (08:29)
[2017-01-10] MEDS: ARIPIPRAZOLE 2 MG TABLET PO SCH (08:35)
[2017-01-10] MEDS: HYDROCORTISONE 10 MG TABLET PO SCH ×2 (08:36→17:45)
--- NOTE | 2017-01-10 09:30 | NUR ---
DR LAM SEE PATIENT AND LAB RESULT OF K+2.8 NOTIFY
[2017-01-10] MEDS: ONDANSETRON 4 MG/2 ML VIAL IV PRN ×3 (09:37→23:30)
--- NOTE | 2017-01-10 10:00 | NUR ---
DR LAM WAS CALL X2 EREBANNERDING NO ORDER FOR LOW K+ YET AND MESSAGE LAFT
--- NOTE | 2017-01-10 11:00 | NUR ---
DR LAM REQUEST ,HAVE PHAMACY TO ORDER KCL MED TO PATIENT TODAY AND [facility]AM[facility]Y WAS CALL TO INFORM OF DR OSORIO
[2017-01-10] MEDS: POTASSIUM CHLORIDE 50 ML IV SCH ×2 (11:24→12:38)
--- NOTE | 2017-01-10 11:24 | NUR ---
START FIRST BAG OF KCL IVPB ORDER
[2017-01-10] MEDS: HYDROXYZINE PAMOATE 25 MG CAPSULE PO PRN ×2 (11:28→19:56)
[2017-01-10] MEDS: LORAZEPAM 0.5 MG TABLET PO PRN ×2 (11:28→16:33)
[2017-01-10 11:33] VITALS: BP 97/50
[2017-01-10 11:41] LABS: BASOPHILS % (MANUAL) 1 % (0-2); EOSINOPHILS % (MANUAL) 1 % (0-8); LYMPHOCYTES % (MANUAL) 32 % (20-40); MONOCYTES % (MANUAL) 9 % (2-10); NEUTROPHILS % (MANUAL) 57 % (42-75)
--- NOTE | 2017-01-10 12:30 | NUR ---
C/O OF BURNNING AT IV SITE REFUSED TO HAVE SECOND BAG AND PHAMACY WAS CALL AND ORDER CHANGE TO GIVE PO INSTEAD
[2017-01-10] MEDS ORDERED: POTASSIUM CHLORIDE 20 MEQ TAB.PRT.SR PO ONE ×2 (13:30→23:45)
--- NOTE | 2017-01-10 14:00 | NUR ---
EAT LUNCH REZA AMT C/O OF PAIN MED PRN GIVEN ORDER AND TAKEN KCL PO
[2017-01-10] MEDS ORDERED: LIDOCAINE HCL 1% 20 ML VIAL ONE (15:25)
[2017-01-10 15:26] VITALS: BP 101/59
[2017-01-10 16:44] LABS: CARBON DIOXIDE 34 mmol/L (21-32); GLUCOSE 152 mg/dL (74-106); UREA NITROGEN, BLOOD 21 mg/dL (7-18)
[2017-01-10 16:49] LABS: CHLORIDE 94 mmol/L (98-107)
[2017-01-10 16:53] LABS: POTASSIUM 2.6 mmol/L (3.5-5.1)
--- NOTE | 2017-01-10 17:10 | NUR ---
DR LAM WAS CALL AND DR VASILE GUIDO REGARDING K+ WAS 2.6 THIS EVENING AND AFTER SPEAK WITH GIRMA JEAN AND MESSAGE LEFT NEED ORDER
--- NOTE | 2017-01-10 17:35 | NUR ---
DR LAM WAS CALL AGAIN REGARDING NO DR RETURN CALL AND MESSAGE LEFT
[2017-01-10] MEDS: GABAPENTIN 300 MG CAPSULE PO SCH (17:45)
[2017-01-10] MEDS: NYSTATIN SUSPENSION 5 ML LIQUID UDC PO SCH ×2 (18:30→18:56)
[2017-01-10] MEDS: POTASSIUM CHLORIDE 20 MEQ TAB.PRT.SR PO SCH ×3 (18:57→20:00)
--- NOTE | 2017-01-10 19:00 | NUR ---
PATIENT REFUSED TO TAKE K DUR AT THIS TIME STATE WANT PAIN MEDICINE DR LAM WAS CALL AND MESSAGE LEFT REGARDING POSS CAN CHANGE PO PAIN MEDICINE TO Q 4HR INSTEAD OF Q6HR
[2017-01-10 20:00] VITALS: BP 154/101
[2017-01-10] MEDS: ATORVASTATIN 10 MG TABLET PO SCH (21:27)
[2017-01-10 22:00] VITALS: BP 154/101
[2017-01-10] MEDS ORDERED: POTASSIUM CHLORIDE 20 MEQ TAB.PRT.SR ONE (22:06)
[2017-01-10] MEDS ORDERED: LORAZEPAM 0.5 MG TABLET PO ONE (23:00)
--- NOTE | 2017-01-10 23:00 | NUR ---
RN NOTES: PATIENT IS COMPLAINING OF CHEST PAIN. IS NOTIFIED AND ORDERED EKG STAT. NITROGLYCERIN 0.4 MG PO Q 5MIN 3 TIMES ONCE NOW AND HOLD IF BP IS <100 MMHG, ZOFRAN 4 MG IV AND 1/2 TABLET OF NORCO 5-325 MG. WILL CARRY OUT THE ORDER AND MONITOR PATIENT'S CONDITION.
[2017-01-10] MEDS ORDERED: HYDROCODONE/APAP 5-325MG TABLET PO ONE (23:15)
[2017-01-10] MEDS ORDERED: NITROGLYCERIN 0.4 MG/TAB BOTTLE SL PRN (23:15)
[2017-01-10] MEDS ORDERED: LORAZEPAM 0.5 MG TABLET ONE (23:18)
[2017-01-10] MEDS ORDERED: NITROGLYCERIN 0.4 MG/TAB BOTTLE SL ONE (23:31)
--- NOTE | 2017-01-11 | NUR ---
RN NOTES: PATIENT IS RELAXING IN BED STATES CHEST PAIN SUBSIDED. EKG SHOWS NORMAL SINUS RYTHM. CHARGE NURSE IS AWARE. WILL CONTINUE TO MONITOR.
[2017-01-11] MEDS: NYSTATIN SUSPENSION 5 ML LIQUID UDC PO SCH ×4 (00:08→17:38)
[2017-01-11] MEDS: DICYCLOMINE HCL 10 MG CAPSULE PO SCH ×4 (00:08→17:38)
[2017-01-11] MEDS ORDERED: HYDROCODONE/APAP 5-325MG TABLET ONE (00:42)
[2017-01-11] MEDS: CLONIDINE HCL 0.3 MG TABLET PO SCH ×2 (06:17→13:43)
[2017-01-11 06:30] LABS: ALANINE AMINOTRANSFERASE 20 U/L (14-59); ALKALINE PHOSPHATASE 69 U/L (50-136); ASPARTATE AMINOTRANSFERASE 17 U/L (15-37); BILIRUBIN,TOTAL 0.3 mg/dL (0.2-1.0); CARBON DIOXIDE 34 mmol/L (21-32); CHLORIDE 96 mmol/L (98-107); CREATININE 1.3 mg/dL (0.6-1.3); GLUCOSE 125 mg/dL (74-106); MAGNESIUM 2.1 mg/dL (1.8-2.4); PHOSPHOROUS 4.2 mg/dL (2.5-4.9); POTASSIUM 3.7 mmol/L (3.5-5.1); TOTAL PROTEIN, SERUM 6.1 g/dL (6.4-8.2); UREA NITROGEN, BLOOD 19 mg/dL (7-18)
[2017-01-11 06:46] VITALS: BP 150/83
[2017-01-11 07:27] LABS: BASOPHILS % (AUTO) 0.2 % (0.0-2.0); EOSINOPHILS # (AUTO) 0.1 K/uL (0.0-0.7); EOSINOPHILS % (AUTO) 1.4 % (0.0-7.0); HEMATOCRIT 37.3 % (37-47); HEMOGLOBIN 11.6 G/DL (12.0-16.0); LYMPHOCYTES # (AUTO) 1.2 K/UL (0.8-4.8); LYMPHOCYTES % (AUTO) 26.2 % (20.5-51.5); MEAN CORPUSCULAR HEMOGLOBIN 22.5 UUG (27.0-31.0); MEAN CORPUSCULAR HGB CONC 31 g/dL (32.0-37.0); MONOCYTES # (AUTO) 0.4 K/UL (0.1-1.30); MONOCYTES % (AUTO) 8.9 % (0.0-11.0); NEUTROPHILS % (AUTO) 63.3 % (38.5-71.5); PLATELET COUNT (AUTO) 251 K/UL (150-450); RED BLOOD CELL COUNT(AUTO) 5.17 MIL/UL (4.2-5.4); WHITE BLOOD COUNT (AUTO) 4.7 K/UL (4.0-11.2)
[2017-01-11] MEDS: FUROSEMIDE 40 MG/4 ML VIAL IV SCH (09:00)
[2017-01-11] MEDS: LOSARTAN POTASSIUM 50 MG TABLET PO SCH (09:00)
[2017-01-11 09:58] LABS: BAND % (MANUAL) 1 % (0-10); EOSINOPHILS % (MANUAL) 1 % (0-8); LYMPHOCYTES % (MANUAL) 21 % (20-40); MONOCYTES % (MANUAL) 12 % (2-10); NEUTROPHILS % (MANUAL) 65 % (42-75)
[2017-01-11] MEDS: HYDROXYZINE PAMOATE 25 MG CAPSULE PO PRN (09:59)
[2017-01-11] MEDS: ARIPIPRAZOLE 2 MG TABLET PO SCH (10:00)
[2017-01-11] MEDS: HYDROCORTISONE 10 MG TABLET PO SCH ×2 (10:00→17:41)
[2017-01-11] MEDS: busPIRone 5 MG TABLET PO SCH ×3 (10:11→17:38)
[2017-01-11] MEDS: FLUDROCORTISONE ACETATE 0.1 MG TABLET PO SCH (10:12)
[2017-01-11] MEDS: SODIUM CHLORIDE 1,000 MG TABLET PO SCH ×3 (10:12→17:38)
[2017-01-11] MEDS: CARBIDOPA/LEVODOPA 25-250MG TABLET PO SCH ×3 (10:13→17:38)
[2017-01-11] MEDS: PANTOPRAZOLE SODIUM 40 MG TABLET.DR PO SCH (10:13)
[2017-01-11] MEDS: GABAPENTIN 300 MG CAPSULE PO SCH ×3 (10:13→17:38)
[2017-01-11] MEDS: LORAZEPAM 0.5 MG TABLET PO PRN ×2 (10:29→15:41)
--- NOTE | 2017-01-11 10:51 | NUR ---
repositoned to left side with pillow support, remedy given as needed for skin protection, aware to reposition q2 hours to prevent skin breakdown, verbalized understanding.
[2017-01-11 11:27] VITALS: BP 105/50
[2017-01-11] MEDS: ONDANSETRON 4 MG/2 ML VIAL IV PRN (14:03)
[2017-01-11 15:10] VITALS: BP 170/86
[2017-01-11] MEDS: HYDROCODONE/APAP 5-325MG TABLET PO PRN (15:42)
--- NOTE | 2017-01-11 18:35 | NUR ---
discharged home with son in stable condition, anxious to go home. has own home healt to go but dont know name and has their number and will contact today upon discharge.
== END 2017-01-11 19:00 | disposition home or self-care (01) | DRG 56 ==
LOC: ER 13:10 → TELE 17:26 → MED 01-10 12:57
PROVIDERS: ADMIT Internal Medicine; ATTEND Internal Medicine
DX: G90.3 Multi-system degeneration of the autonomic nervous system (principal); I50.31 Acute diastolic (congestive) heart failure; E87.1 Hypo-osmolality and hyponatremia; E27.40 Unspecified adrenocortical insufficiency; Z79.899 Other long term (current) drug therapy; G62.9 Polyneuropathy, unspecified; K21.9 Gastro-esophageal reflux disease without esophagitis; Z90.710 Acquired absence of both cervix and uterus; Z86.79 Personal history of other diseases of the circulatory system; I11.0 Hypertensive heart disease with heart failure; F41.9 Anxiety disorder, unspecified; F39 Unspecified mood [affective] disorder; Z79.52 Long term (current) use of systemic steroids; R11.0 Nausea; G89.29 Other chronic pain; H81.399 Other peripheral vertigo, unspecified ear; T38.0X5A Adverse effect of glucocorticoids and synthetic analogues, initial encounter; T50.0X5A Adverse effect of mineralocorticoids and their antagonists, initial encounter; Y92.89 Other specified places as the place of occurrence of the external cause
CPT/HCPCS: 36415; 36600; 70030-TC; 83735; 84100; 85025; 85610; 93005; A4663; J1940; J2405; J3480; J3490; J7030; J7040

== ENCOUNTER 2017-03-28 15:38 | Emergency (ER) | payer MEDICARE, OTHER ==
[~2017-03-28] VITALS: Ht 160 cm; Wt 54.4 kg
[~2017-03-28 15:38] MED LIST changes: -CLON0.1T14 PO; -DICY10CA21 PO; -HYDR-3326 PO; -HYDR-3895 PO
[2017-03-28 18:03] LABS: BASOPHILS # (AUTO) 0.1 K/uL (0.0-8.0); BASOPHILS % (AUTO) 1.5 % (0.0-2.0); EOSINOPHILS # (AUTO) 0.1 K/uL (0.0-0.7); EOSINOPHILS % (AUTO) 1.5 % (0.0-7.0); HEMATOCRIT 35.9 % (37-47); HEMOGLOBIN 11.6 G/DL (12.0-16.0); LYMPHOCYTES # (AUTO) 2.4 K/UL (0.8-4.8); LYMPHOCYTES % (AUTO) 29.9 % (20.5-51.5); MEAN CORPUSCULAR HEMOGLOBIN 22.6 UUG (27.0-31.0); MEAN CORPUSCULAR HGB CONC 32 g/dL (32.0-37.0); MEAN CORPUSCULAR VOLUME 70.1 FL (81.0-99.0); MONOCYTES # (AUTO) 0.6 K/UL (0.1-1.30); MONOCYTES % (AUTO) 7.1 % (0.0-11.0); NEUTROPHILS # (AUTO) 4.7 K/UL (1.8-8.9); PLATELET COUNT (AUTO) 222 K/UL (150-450); RED BLOOD CELL COUNT(AUTO) 5.12 MIL/UL (4.2-5.4); WHITE BLOOD COUNT (AUTO) 7.9 K/UL (4.0-11.2)
[2017-03-28 18:07] LABS: ALANINE AMINOTRANSFERASE 7 U/L (14-59); ALKALINE PHOSPHATASE 53 U/L (50-136); ASPARTATE AMINOTRANSFERASE 24 U/L (15-37); BILIRUBIN,DIRECT 0.1 mg/dL (0.0-0.2); BILIRUBIN,TOTAL 0.4 mg/dL (0.2-1.0); CARBON DIOXIDE 26 mmol/L (21-32); CHLORIDE 96 mmol/L (98-107); CREATININE 0.8 mg/dL (0.6-1.3); GLUCOSE 136 mg/dL (74-106); LIPASE 74 U/L (73-393); TOTAL PROTEIN, SERUM 6.7 g/dL (6.4-8.2); UREA NITROGEN, BLOOD 16 mg/dL (7-18)
[2017-03-28 18:13] LABS: POTASSIUM 4.5 mmol/L (3.5-5.1)
--- NOTE | 2017-03-28 18:17 | NUR ---
labetolol 10mg given IV for persistent hypertension
--- NOTE | 2017-03-28 18:24 | NUR ---
dilaudid 0.5mg given IV for persistent generalized pain. also zofran was given at 1819
[2017-03-28 18:45] LABS: BAND % (MANUAL) 1 % (0-10); EOSINOPHILS % (MANUAL) 1 % (0-8); LYMPHOCYTES % (MANUAL) 32 % (20-40); MONOCYTES % (MANUAL) 9 % (2-10); NEUTROPHILS % (MANUAL) 57 % (42-75)
--- NOTE | 2017-03-28 18:46 | NUR ---
catherized aseptically for urinary incontinence. urine sent to lab for analysis
[2017-03-28 18:52] LABS: *BILIRUBIN,URIN NEGATIVE (NEGATIVE); *BLOOD, URINE NEGATIVE (NEGATIVE); *COLOR,URINE YELLOW (YELLOW); *KETONES,URINE NEGATIVE (NEGATIVE); *PROTEIN,URINE NEGATIVE (NEGATIVE); *UROBILINOGEN,URINE 0.2 E.U./dl (NORMAL); LEUKOCYTE ESTERASE ,URINE 2+ (NEGATIVE); NITRITE, URINE POSITIVE (NEGATIVE); PH,URINE 8.5 (5.0-8.0); UGLUCOSE NEGATIVE (NEGATIVE)
[2017-03-28 19:01] LABS: *CLARITY,URINE SLIGHTLY HAZY (CLEAR)
[2017-03-28 19:02] LABS: BACTERIA,URINE MANY /HPF (NONE SEEN); SQUAMOUS EPITHELIAL CELL,UR FEW /HPF (NONE SEEN)
--- NOTE | 2017-03-28 19:05 | NUR ---
report given to Erika CONNOR
--- NOTE | 2017-03-28 19:11 | NUR ---
Received report from previous shift. Assumed care of pt at this time. Pt resting in position of comfort for self. Pt c/o severe headache, notified and awaiting further orders. Pt awaiting CT.
--- NOTE | 2017-03-28 20:07 | NUR ---
Consent for CT with contrast obtained. Pt then medicated for discomfort, will monitor for effects of medication. Attempting to establish larger bore IV for CT.
--- NOTE | 2017-03-28 20:35 | NUR ---
Pt sts pain improving in her head. Dr. Frazier established new IV 18g R upper arm with u/s. Pt to CT via johanny
--- NOTE | 2017-03-28 21:05 | NUR ---
Pt returned from CT via gurney. Resting in position of comfort for self. No obvious signs of distress at this time. Awaiting CT results.
--- NOTE | 2017-03-28 21:07 | NUR ---
I spoke with the patient's son Sánchez Farias on the phone who said the patient called 911 today because she was feeling anxious and generalized fatigue. He is more than happy to have her back home should the rest of her results be ok.
--- NOTE | 2017-03-28 22:00 | NUR ---
Pt no longer c/o abd pain or headache but is now complaining of severe mouth, throat and neck pain. Pt speaking full sentences, resp even and unlabored and pt swallowing her own saliva. notified, awaiting further orders. Pt given ice chips.
--- NOTE | 2017-03-28 22:19 | NUR ---
CT is reasurring. No acute pathology. Mild effusion, but present on echo several months ago. Will tx with 7 days of keflex after 1gm of CTX. Stable for outpatient management.
--- NOTE | 2017-03-28 22:20 | NUR ---
ABT infusion started, will monitor for any adverse reactions.
--- NOTE | 2017-03-28 23:00 | NUR ---
Pt conts to c/o severe neck but denies mouth and throat pain. Pt also c/o headache at this time. MD notified, awaiting further orders. Pt's son called and asked to return to ER to take pt home for when she becomes discharged.
--- NOTE | 2017-03-28 23:30 | NUR ---
Pt's son at bedside. Pt cont to c/o pain. Dr. Frazier spoke with both pt and her son. No adverse reactions noted from ABT infusion. Pt stable for discharge per Dr. Frazier. IVs dc'd, catheters intact, drsgs applied. No problems noted to sites. Pt and son given ACI. Both verbalized understanding of dc instructions. Pt wheeled out of ER via w/c with ride home.
[2017-03-29 01:09] VITALS: BP 114/69
== END 2017-03-28 23:30 | disposition home or self-care (01) ==
LOC: ER 15:38
DX: G89.29 Other chronic pain (principal); R10.84 Generalized abdominal pain; I16.0 Hypertensive urgency; I10 Essential (primary) hypertension; G20 Parkinson's disease
CPT/HCPCS: 36415; 71010; 71260; 74177; 80048; 80076; 81001; 83690; 84484; 85025; 85730; 87086; 93005; 96365; 96375; 96376; 99291; A4663; J0696; J1170 ×2; J2270; J2405 ×3; J3490 ×3; J7050; Q9967; 70030-TC; 87077

== ENCOUNTER 2023-04-07 | Emergency (ER) | payer MEDICARE, OTHER ==
[~2023-04-07] VITALS: Ht 172.7 cm; Wt 65.8 kg
[~2023-04-07] MED LIST changes: +GABA600T12 PO; -GABA600T2 PO; -SENN-167 PO; +SENN-261 PO
[2023-04-07 01:51] LABS: *BILIRUBIN,URIN NEGATIVE (NEGATIVE); *BLOOD, URINE NEGATIVE (NEGATIVE); *CLARITY,URINE CLEAR (CLEAR); *COLOR,URINE YELLOW (YELLOW); *KETONES,URINE NEGATIVE (NEGATIVE); *PROTEIN,URINE NEGATIVE (NEGATIVE); *UROBILINOGEN,URINE 0.2 E.U./dl (NORMAL); LEUKOCYTE ESTERASE ,URINE NEGATIVE (NEGATIVE); NITRITE, URINE NEGATIVE (NEGATIVE); UGLUCOSE NEGATIVE (NEGATIVE)
[2023-04-07 04:29] LABS: BASOPHILS % (AUTO) 0.6 % (0.0-2.0); EOSINOPHILS # (AUTO) 0.6 K/uL (0.0-0.7); EOSINOPHILS % (AUTO) 8.7 % (0.0-7.0); HEMATOCRIT 28.9 % (31.2-41.9); HEMOGLOBIN 9.3 g/dL (10.9-14.3); LYMPHOCYTES # (AUTO) 0.9 K/uL (0.8-4.8); LYMPHOCYTES % (AUTO) 13.5 % (20.5-51.5); MEAN CORPUSCULAR HEMOGLOBIN 25.2 uug (24.7-32.8); MEAN CORPUSCULAR HGB CONC 32 g/dL (32.3-35.6); MEAN CORPUSCULAR VOLUME 78.1 fL (75.5-95.3); MONOCYTES # (AUTO) 0.4 K/uL (0.1-1.30); NEUTROPHILS # (AUTO) 4.5 K/uL (1.8-8.9); NEUTROPHILS % (AUTO) 71.2 % (38.5-71.5); PLATELET COUNT (AUTO) 257 K/uL (179-408); RED CELL DISTRIBUTION WIDTH 17.2 % (12.3-17.7); WHITE BLOOD COUNT (AUTO) 6.4 K/uL (3.8-11.8)
[2023-04-07 04:38] LABS: DIFFERENTIAL COMMENT 1
[2023-04-07 04:42] LABS: CALCIUM 8.2 mg/dL (8.5-10.1); CARBON DIOXIDE 27 mmol/L (21-32); CHLORIDE 102 mmol/L (98-107); CREATININE 0.8 mg/dL (0.6-1.3); GLUCOSE 82 mg/dL (74-106); POTASSIUM 4.5 mmol/L (3.5-5.1); SODIUM SERUM 135 mmol/L (136-145); UREA NITROGEN, BLOOD 34 mg/dL (7-18)
[2023-04-07] MEDS ORDERED: HYDROMORPHONE 1 MG/1 ML DISP.SYRIN ONE (05:06)
[2023-04-07] MEDS ORDERED: ONDANSETRON 4 MG/2 ML VIAL IV ONE (05:15)
[2023-04-07] MEDS ORDERED: HYDROMORPHONE 1 MG/1 ML DISP.SYRIN IV ONE (05:15)
[2023-04-07] MEDS ORDERED: IV NS 1000 ML 1,000 ML IV ONE (05:15)
[2023-04-07] MEDS ORDERED: ONDANSETRON 4 MG/2 ML VIAL ONE (05:18)
[2023-04-07] MEDS ORDERED: HYDROCODONE/APAP 5-325MG TABLET PO ONE (08:15)
[2023-04-07] MEDS ORDERED: HYDROCODONE/APAP 5-325MG TABLET ONE (08:23)
[2023-04-07 08:40] VITALS: BP 123/64; O2SAT 99
== END 2023-04-07 08:47 ==
LOC: ER 00:07
DX: M54.9 Dorsalgia, unspecified (principal); R51.9 Headache, unspecified; E86.0 Dehydration; I10 Essential (primary) hypertension; R07.89 Other chest pain; Z79.899 Other long term (current) drug therapy; W18.39XA Other fall on same level, initial encounter; Y93.89 Activity, other specified; Y92.89 Other specified places as the place of occurrence of the external cause; Y99.8 Other external cause status
CPT/HCPCS: 99285; 70450; 96374; 96361; 71045; 96375; 80048; 81003; 85025; 84145; 87040 ×2; 36415; 93005; 72128; 72131; 87205; J2405; J1170; J7040; A4663

== ENCOUNTER 2024-11-22 22:14 | Inpatient (IN) | payer MEDICARE, OTHER ==
[~2024-11-22] VITALS: Ht 157.5 cm; Wt 45.5 kg
[2024-11-22 23:18] LABS: BASOPHILS % (AUTO) 0.7 % (0.0-2.0); EOSINOPHILS # (AUTO) 0.1 K/uL (0.0-0.7); EOSINOPHILS % (AUTO) 1.8 % (0.0-7.0); HEMATOCRIT 34.6 % (31.2-41.9); HEMOGLOBIN 11.2 g/dL (10.9-14.3); MEAN CORPUSCULAR HEMOGLOBIN 24.1 uug (24.7-32.8); MEAN CORPUSCULAR HGB CONC 32 g/dL (32.3-35.6); MEAN CORPUSCULAR VOLUME 74.5 fL (75.5-95.3); MONOCYTES # (AUTO) 0.4 K/uL (0.1-1.30); NEUTROPHILS # (AUTO) 2.1 K/uL (1.8-8.9); NEUTROPHILS % (AUTO) 58.5 % (38.5-71.5); PLATELET COUNT (AUTO) 161 K/uL (179-408); RED BLOOD CELL COUNT(AUTO) 4.65 MIL/uL (3.63-4.92); RED CELL DISTRIBUTION WIDTH 17.3 % (12.3-17.7); WHITE BLOOD COUNT (AUTO) 3.7 K/uL (3.8-11.8)
[2024-11-22 23:23] LABS: DIFFERENTIAL COMMENT 1
[2024-11-22] MEDS ORDERED: ONDANSETRON 4 MG/2 ML VIAL ONE (23:23)
[2024-11-22] MEDS ORDERED: MORPHINE SULFATE 2 MG/1 ML DISP.SYRIN ONE (23:23)
[2024-11-22 23:26] LABS: *BILIRUBIN,URIN NEGATIVE (NEGATIVE); *BLOOD, URINE 1+ (NEGATIVE); *CLARITY,URINE CLEAR (CLEAR); *COLOR,URINE YELLOW (YELLOW); *KETONES,URINE 1+ (NEGATIVE); *PROTEIN,URINE 1+ (NEGATIVE); *UROBILINOGEN,URINE 0.2 E.U./dl (NORMAL); LEUKOCYTE ESTERASE ,URINE 2+ (NEGATIVE); NITRITE, URINE NEGATIVE (NEGATIVE); PH,URINE 5.5 (5.0-8.0); UGLUCOSE NEGATIVE (NEGATIVE)
[2024-11-22 23:29] LABS: CALCIUM 8.7 mg/dL (8.5-10.1); CARBON DIOXIDE 27 mmol/L (21-32); CHLORIDE 108 mmol/L (98-107); GLUCOSE 102 mg/dL (74-106); POTASSIUM 3.6 mmol/L (3.5-5.1); SODIUM SERUM 142 mmol/L (136-145); UREA NITROGEN, BLOOD 32 mg/dL (7-18)
[2024-11-22] MEDS: IV NS 1000 ML 1,000 ML IV ONE (23:37)
[2024-11-22] MEDS: MORPHINE SULFATE 2 MG/1 ML DISP.SYRIN IV ONE (23:37)
[2024-11-22] MEDS: ONDANSETRON 4 MG/2 ML VIAL IV ONE (23:38)
[2024-11-22 23:39] LABS: BACTERIA,URINE MODERATE /HPF (NONE SEEN); SQUAMOUS EPITHELIAL CELL,UR MODERATE /HPF (NONE SEEN); WBC,URINE 20-50 /HPF (0-3)
[2024-11-22 23:40] LABS: MUCUS,URINE MODERATE /LPF (0-FEW)
[2024-11-22 23:42] LABS: ALANINE AMINOTRANSFERASE 6 U/L (14-59); ALBUMIN 3.2 g/dL (3.4-5.0); ALKALINE PHOSPHATASE 73 U/L (50-136); ASPARTATE AMINOTRANSFERASE 13 U/L (15-37); BILIRUBIN,TOTAL 0.4 mg/dL (0.2-1.0); LIPASE 18 U/L (16-77); NT-PRO BNP 741 pg/mL (0-125); TOTAL PROTEIN, SERUM 6.6 g/dL (6.4-8.2)
[2024-11-23] MEDS ORDERED: CEFTRIAXONE /D5W 50ML IVPB **ER PYXIS IV ONE (01:30)
[2024-11-23] MEDS ORDERED: LORAZEPAM 2 MG/1 ML VIAL ONE (01:37)
[2024-11-23] MEDS: LORAZEPAM 2 MG/1 ML VIAL IV ONE (01:46)
[2024-11-23] MEDS: CEFTRIAXONE 1 G in IV DEXTROSE 5% 50 ML IV ONE (01:47)
[2024-11-23] MEDS ORDERED: ONDANSETRON 4 MG/2 ML VIAL IV PRN (02:45)
[2024-11-23] MEDS ORDERED: MAGNESIUM HYDROXIDE 30 ML LIQUID UDC PO PRN (02:45)
[2024-11-23 04:30] VITALS: BP 142/75; TEMP 97.5; O2SAT 96
[2024-11-23] MEDS: IV NS 1000 ML 1,000 ML IV PRN ×2 (04:40→17:49)
[2024-11-23] MEDS: PANTOPRAZOLE SODIUM 40 MG TABLET.DR PO SCH (06:29)
[2024-11-23 08:00] VITALS: BP 174/72; TEMP 96.8; O2SAT 98
[2024-11-23] MEDS: ACETAMINOPHEN 325 MG TABLET PO PRN (08:59)
[2024-11-23] MEDS ORDERED: HYDR-4322 PO (10:35)
[2024-11-23] MEDS ORDERED: HYDR-3972 PO (10:35)
[2024-11-23] MEDS ORDERED: DIPH25TA23 PO (10:36)
[2024-11-23] MEDS ORDERED: SENN1TAB59 PO (10:36)
[2024-11-23] MEDS ORDERED: OMEP40CA21 PO (10:37)
[2024-11-23] MEDS ORDERED: SENN8.6T19 PO (10:37)
[2024-11-23] MEDS ORDERED: CHOL2000 PO (10:38)
[2024-11-23] MEDS ORDERED: GABA-532 PO (10:39)
[2024-11-23] MEDS ORDERED: CYAN-51 PO (10:39)
[2024-11-23] MEDS ORDERED: CARB-36 PO (10:40)
[2024-11-23] MEDS ORDERED: ESTR42.511 VG (10:56)
[2024-11-23] MEDS ORDERED: CLOT10TR PO (10:56)
[2024-11-23] MEDS ORDERED: TRIA80OI2 TP (10:57)
[2024-11-23] MEDS ORDERED: ACET325T53 PO (10:58)
[2024-11-23] MEDS ORDERED: MIRT-94 PO (11:00)
[2024-11-23] MEDS ORDERED: CRAN450T9 PO (11:00)
[2024-11-23] MEDS ORDERED: CARB1TAB24 PO (11:02)
[2024-11-23] MEDS ORDERED: LOSA50TA39 PO (11:03)
[2024-11-23] MEDS: HYDROCODONE/APAP 5-325MG TABLET PO PRN (11:13)
[2024-11-23 12:53] VITALS: BP 158/56; TEMP 97.9; O2SAT 98
[2024-11-23] MEDS: ENSURE ENLIVE (VAN) 240 ML LIQUID PO SCH (13:02)
[2024-11-23 16:54] VITALS: BP 183/100; TEMP 98.2; O2SAT 98
[2024-11-23] MEDS: hydrALAZINE HCL 50 MG TABLET PO PRN (17:35)
[2024-11-23 19:00] VITALS: BP 124/62; TEMP 97.6; O2SAT 97
[2024-11-24] MEDS: CEFTRIAXONE 1 G in IV DEXTROSE 5% 50 ML IV SCH (01:08)
[2024-11-24 06:00] VITALS: BP 149/85; TEMP 97.8; O2SAT 99
[2024-11-24 07:13] LABS: BASOPHILS % (AUTO) 0.4 % (0.0-2.0); EOSINOPHILS # (AUTO) 0.1 K/uL (0.0-0.7); EOSINOPHILS % (AUTO) 2.4 % (0.0-7.0); HEMATOCRIT 33.3 % (31.2-41.9); LYMPHOCYTES # (AUTO) 0.9 K/uL (0.8-4.8); LYMPHOCYTES % (AUTO) 21.2 % (20.5-51.5); MEAN CORPUSCULAR HEMOGLOBIN 24.7 uug (24.7-32.8); MEAN CORPUSCULAR HGB CONC 33 g/dL (32.3-35.6); MEAN CORPUSCULAR VOLUME 74.6 fL (75.5-95.3); MONOCYTES # (AUTO) 0.4 K/uL (0.1-1.30); MONOCYTES % (AUTO) 10.9 % (0.0-11.0); NEUTROPHILS # (AUTO) 2.6 K/uL (1.8-8.9); NEUTROPHILS % (AUTO) 65.1 % (38.5-71.5); PLATELET COUNT (AUTO) 148 K/uL (179-408); RED BLOOD CELL COUNT(AUTO) 4.46 MIL/uL (3.63-4.92); RED CELL DISTRIBUTION WIDTH 17.4 % (12.3-17.7)
[2024-11-24 07:19] LABS: CALCIUM 7.7 mg/dL (8.5-10.1); CARBON DIOXIDE 26 mmol/L (21-32); CHLORIDE 110 mmol/L (98-107); CREATININE 0.7 mg/dL (0.6-1.3); GLUCOSE 73 mg/dL (74-106); MAGNESIUM 1.8 mg/dL (1.8-2.4); PHOSPHOROUS 3.5 mg/dL (2.5-4.9); POTASSIUM 3.8 mmol/L (3.5-5.1); SODIUM SERUM 144 mmol/L (136-145); UREA NITROGEN, BLOOD 22 mg/dL (7-18)
[2024-11-24 07:32] LABS: DIFFERENTIAL COMMENT 1
[2024-11-24] MEDS ORDERED: CEPH500C2 PO (11:41)
[2024-11-24] MEDS: BISACODYL 10 MG SUPP.RECT RC ONE (13:43)
[2024-11-24 15:44] VITALS: BP 176/84; TEMP 97.7; O2SAT 98
[2024-11-24 17:31] VITALS: BP 147/90; TEMP 97.8; O2SAT 98
[2024-11-24 19:00] VITALS: BP 149/89; TEMP 97.2; O2SAT 99
[2024-11-24 19:15] VITALS: BP 139/75; TEMP 96.8; O2SAT 98
[2024-11-24 19:18] VITALS: BP 149/65
[2024-11-24] MEDS: METOPROLOL TARTRATE 50 MG TABLET PO ONE (19:18)
== END 2024-11-24 22:05 | disposition home health service (06) | DRG 689 ==
LOC: ER 22:17 → TELE3 11-23 02:00 → MEDSURG3 11-23 12:20
PROVIDERS: ADMIT Nurse Practitioner Acute Care; ATTEND Nurse Practitioner Acute Care
PROC: 05HB33Z Insertion of Infusion Device into Right Basilic Vein, Percutaneous Approach (ICD-10-PCS; principal; 2024-11-23)
DX: N39.0 Urinary tract infection, site not specified (principal); G93.41 Metabolic encephalopathy; I50.32 Chronic diastolic (congestive) heart failure; E27.40 Unspecified adrenocortical insufficiency; Z93.1 Gastrostomy status; D69.6 Thrombocytopenia, unspecified; I11.0 Hypertensive heart disease with heart failure; Z79.899 Other long term (current) drug therapy; Z86.79 Personal history of other diseases of the circulatory system; G62.9 Polyneuropathy, unspecified; I25.10 Atherosclerotic heart disease of native coronary artery without angina pectoris; G20.A1 Parkinson's disease without dyskinesia, without mention of fluctuations; Z87.09 Personal history of other diseases of the respiratory system; Z79.52 Long term (current) use of systemic steroids
CPT/HCPCS: 36415; 71045; 83605; 83690; 83735; 84100; 84484; 85025; 87040; 87086; A4606; A4663; A6213; G0378; J0696; J2060; J2270; J2405; J7040